=== PATIENT | female | born 1995 | race Caucasian/White ===

== ENCOUNTER 2018-07-26 10:08 | Outpatient (CLI) | payer BC, SELFPAY ==
[2018-07-26 10:26] LABS: HCT 40.1 % (36.0-46.0); HGB 13.4 g/dL (12.0-15.5); Mean Corp. HGB Concentration 33.4 g/dL (32.0-36.0); Mean Corpuscular Volume 89.7 fL (80-95); Mean Platelet Volume 10.4 fL (8.0-11.0); Platelet Count 214 x1000/uL (130-400); RBC 4.47 m/cumm (4.00-5.20); RBC Distribution Width 12.8 % (11.7-14.6); White Blood Cell Count 7.58 k/cumm (4.4-10.8)
[2018-07-26 11:21] LABS: HCG Quant, Pregnancy 784 mIU/mL (1-3)
== END 2018-07-26 10:28 ==
PROVIDERS: Visit Provider Advanced Practice Midwife
DX: O20.0 Threatened abortion (principal)
CPT/HCPCS: 36415; 85027; 84702

== ENCOUNTER 2018-07-29 10:12 | Outpatient (CLI) | payer BC, SELFPAY ==
[2018-07-29 11:57] LABS: HCG Quant, Pregnancy 585 mIU/mL (1-3)
== END 2018-07-29 10:32 ==
PROVIDERS: Visit Provider Advanced Practice Midwife
DX: O20.0 Threatened abortion (principal)
CPT/HCPCS: 36415; 84702

== ENCOUNTER 2018-08-05 10:55 | Outpatient (CLI) | payer BC, SELFPAY ==
[2018-08-05 12:31] LABS: HCG Quant, Pregnancy 12 mIU/mL (1-3)
== END 2018-08-05 11:15 ==
PROVIDERS: Visit Provider Advanced Practice Midwife
DX: O02.1 Missed abortion (principal)
CPT/HCPCS: 36415; 84702

== ENCOUNTER 2018-11-28 19:03 | Outpatient (REF) | payer BC, MEDICAID, SELFPAY ==
[2018-11-28 20:36] LABS: *AMPHETAMINES SCREEN URINE Negative (Negative); *BARBITURATES SCREEN URINE Negative (Negative); *BENZODIAZEPINES SCREEN URINE Negative (Negative); Cannabinoids THC Negative (Negative); Cocaine Screen,Urine Negative (Negative); METHADONE URINE SCREEN Negative (Negative); OPIATES URINE SCREEN Negative (Negative)
[2018-11-28 20:40] LABS: Tricyclic Antidepressants Negative (Negative)
[2018-11-30 14:06] LABS: Chlamydia Result Negative; GC Result Negative; Specimen Description CERVIX
[2018-12-06 11:35] LABS: Buprenorphine Negative; Norbuprenorphine Negative
== END 2018-11-28 19:23 ==
LOC: LBN 19:03
PROVIDERS: Visit Provider Advanced Practice Midwife
DX: Z34.91 Encounter for supervision of normal pregnancy, unspecified, first trimester (principal); Z11.3 Encounter for screening for infections with a predominantly sexual mode of transmission
CPT/HCPCS: 80307; 87491; 87591; 87086

== ENCOUNTER 2018-12-02 07:53 | Outpatient (CLI) | payer BC, MEDICAID, SELFPAY ==
[2018-12-02 10:32] LABS: Abs Immature Grans 0.01 k/cumm (0.0-0.09); Absolute Basophil Count 0.01 k/cumm (0.0-0.2); Absolute Eosinophil Count 0.07 k/cumm (0.0-0.7); Absolute Monocyte Count 0.63 k/cumm (0.11-0.7); Absolute Neutrophil Count 6.57 k/cumm (1.2-6.7); Basophils % 0.1; Eosinophils % 0.8; HCT 37.1 % (36.0-46.0); HGB 12.7 g/dL (12.0-15.5); Immature Grans % 0.1; Lymphocytes % 19.8; Mean Corp. HGB Concentration 34.2 g/dL (32.0-36.0); Mean Corpuscular Hemoglobin 29.8 pg (27.0-33.0); Mean Corpuscular Volume 87.1 fL (80-95); Mean Platelet Volume 10.3 fL (8.0-11.0); Monocytes % 6.9; Neutrophils % 72.3; Platelet Count 225 x1000/uL (130-400); RBC 4.26 m/cumm (4.00-5.20); RBC Distribution Width 12.4 % (11.7-14.6); White Blood Cell Count 9.09 k/cumm (4.4-10.8)
[2018-12-02 10:48] LABS: Glucose,1 Hr (Glucola) 80 mg/dL (80-140)
[2018-12-02 11:47] LABS: TSH (W/Ref FT4) 1.76 uIU/mL (0.358-3.74)
[2018-12-05 11:18] LABS: Hepatitis C Ab w Rflx HCV PCR Negative (NEGAT)
[2018-12-05 11:22] LABS: HIV-1/2 Ag & Ab Screen Negative (NEGAT)
[2018-12-05 11:44] LABS: Hepatitis B Surface Ag Negative (NEGAT)
[2018-12-05 12:19] LABS: Rubella IgG Ab (UVM) Positive; Syphilis Serology (RPR) Negative (Negative); Varicella IgG Antibody Positive
== END 2018-12-02 08:13 ==
PROVIDERS: Advanced Practice Midwife; Visit Provider Advanced Practice Midwife
DX: Z34.91 Encounter for supervision of normal pregnancy, unspecified, first trimester (principal); Z01.84 Encounter for antibody response examination; Z11.59 Encounter for screening for other viral diseases; Z11.4 Encounter for screening for human immunodeficiency virus [HIV]
CPT/HCPCS: 36415; 80055; 82950; 86787; 86803; 86850; 86900; 86901; 87340; 87389; 84443; 84702; 86592; 86762

== ENCOUNTER 2019-01-24 00:27 | Outpatient (CLI) | payer MEDICAID, SELFPAY ==
--- NOTE | 2019-01-24 11:58 | DI.US_ITS ---
SYMPTOM/DIAGNOSIS: ROUTINE CARE, Z34.90 OB ULTRASOUND: Many abnormalities cannot be diagnosed. A normal exam does not exclude a congenital anomaly. Radiology No. [id number] LMP: Exam Date: 01/24/19 [facility] wks days on EDC ([facility]) 06/16/19 Confirmed: HISTORY: SURVEY PREDICTED GESTATIONAL AGE NUMBER 19 +4 weeks with a range of 18 +4 week to 20 +4 weeks. 1 Determined by___1STUS___LMP__XX_HISTORY Info. pertaining to fetus # PLACENTA PRESENTATION Grade 0 - I Cephalic___ Anterior_XX__Posterior___ Breech____ Right Left Transverse(head right___ Fundal___Low-lying___Previa___ Transverse(head left___ Varying__XX____ BIOMETRY AMNIOTIC FLUID BPD: 47 mm 20 weeks Normal HC: 175 mm 20 weeks AC: 147 mm 20 weeks FL: 32 mm 19 +6 weeks AMNIOTIC FLUID INDEX >26 WK CRL: mm weeks Cisterna Magna: 4.1 mm CI: 78.2 RUQ: LUQ Cerebellum: 1.92 cm EFW: 323 grams 68% Percentile RLQ: LLQ Total: cms Composite AGE= 20 wks EDC by US__06/13/19 BIOPHYSICAL PROFILE ANATOMY IDENTIFIED SCORE 0/2 Heart: 4-Chamber_X__Rate:BPM__150___ LVOT:___X RVOT:___X Amniotic Fluid(>2cms)____ Stomach:___X____ Kidneys:___X____ Respirations (>30 secs) Bladder:___X Post. Fossa:___X Body Flex/Extension 3 vessel cord:__X Ventricles:__X cord insertion:__X___ Lips:__X__ Extremity Flex/Extension spinal morphology:__XX Nose:X Total Score= Palate:_X NS=not seen
== END 2019-01-24 00:47 ==
PROVIDERS: PCP Nurse Practitioner Family; Visit Provider Advanced Practice Midwife
DX: Z34.92 Encounter for supervision of normal pregnancy, unspecified, second trimester (principal)
CPT/HCPCS: 76805

== ENCOUNTER 2019-03-17 10:03 | Outpatient (CLI) | payer MEDICAID, SELFPAY ==
[2019-03-17 10:16] LABS: HCT 34.1 % (36.0-46.0); HGB 11.3 g/dL (12.0-15.5); Mean Corp. HGB Concentration 33.1 g/dL (32.0-36.0); Mean Corpuscular Hemoglobin 29.7 pg (27.0-33.0); Mean Corpuscular Volume 89.7 fL (80-95); Mean Platelet Volume 10.3 fL (8.0-11.0); Platelet Count 185 x1000/uL (130-400); RBC Distribution Width 14.7 % (11.7-14.6); White Blood Cell Count 8.16 k/cumm (4.4-10.8)
[2019-03-17 10:26] LABS: Glucose,1 Hr (Glucola) 101 mg/dL (80-140)
== END 2019-03-17 10:23 ==
PROVIDERS: Visit Provider Advanced Practice Midwife
DX: Z34.90 Encounter for supervision of normal pregnancy, unspecified, unspecified trimester (principal)
CPT/HCPCS: 36415; 82950; 85027

== ENCOUNTER 2019-05-19 12:07 | Outpatient (REF) | payer MEDICAID, SELFPAY ==
[2019-05-19 14:41] LABS: *AMPHETAMINES SCREEN URINE Negative (Negative); *BARBITURATES SCREEN URINE Negative (Negative); *BENZODIAZEPINES SCREEN URINE Negative (Negative); Cannabinoids THC Negative (Negative); Cocaine Screen,Urine Negative (Negative); METHADONE URINE SCREEN Negative (Negative); OPIATES URINE SCREEN Negative (Negative)
[2019-05-19 14:42] LABS: Tricyclic Antidepressants Negative (Negative)
[2019-05-23 15:40] LABS: Buprenorphine Negative; Norbuprenorphine Negative
== END 2019-05-19 12:27 ==
LOC: LBN 12:07
PROVIDERS: Visit Provider Advanced Practice Midwife
DX: Z34.93 Encounter for supervision of normal pregnancy, unspecified, third trimester (principal); Z36.85 Encounter for antenatal screening for Streptococcus B
CPT/HCPCS: 80307; 87081

== ENCOUNTER 2019-06-09 11:08 | Outpatient (CLI) | payer MEDICAID, SELFPAY | END 2019-06-09 11:28 | PROVIDERS: Visit Provider Advanced Practice Midwife | DX: O48.0 Post-term pregnancy (principal); Z3A.40 40 weeks gestation of pregnancy | CPT/HCPCS: 59025 ==

== ENCOUNTER 2019-06-09 16:00 | Inpatient (IN) | payer MEDICAID, SELFPAY ==
[2019-06-09 17:21] LABS: HCT 34.7 % (36.0-46.0); HGB 11.5 g/dL (12.0-15.5); Mean Corp. HGB Concentration 33.1 g/dL (32.0-36.0); Mean Corpuscular Hemoglobin 28.1 pg (27.0-33.0); Mean Corpuscular Volume 84.8 fL (80-95); Platelet Count 260 x1000/uL (130-400); RBC 4.09 m/cumm (4.00-5.20); White Blood Cell Count 11.51 k/cumm (4.4-10.8)
[2019-06-09] MEDS: Oxytocin 10 UNITS/ML VIAL IM (19:00)
[2019-06-09] MEDS: Acetaminophen 325 MG TAB 650 MG PO (22:05)
[2019-06-10] MEDS: Ibuprofen 600 MG TAB PO ×2 (01:50→20:00)
[2019-06-10] MEDS: Docusate Sodium 100 MG CAP PO ×3 (01:50→16:48)
[2019-06-10] MEDS: Acetaminophen 325 MG TAB 650 MG PO ×2 (06:55→16:48)
[2019-06-11] MEDS: Acetaminophen 325 MG TAB 650 MG PO (06:31)
[2019-06-11] MEDS: Docusate Sodium 100 MG CAP PO (07:58)
== END 2019-06-11 10:55 | disposition home or self-care (01) | DRG 807 ==
PROVIDERS: Admitting Provider Advanced Practice Midwife; PCP Specialist/Technologist Athletic Trainer; Visit Provider Advanced Practice Midwife
DX: O42.02 Full-term premature rupture of membranes, onset of labor within 24 hours of rupture (principal); Z37.0 Single live birth; Z3A.39 39 weeks gestation of pregnancy; O69.81X0 Labor and delivery complicated by cord around neck, without compression, not applicable or unspecified; Z67.40 Type O blood, Rh positive
CPT/HCPCS: 36415; 85027; 86850; 86900; 86901; G0378; J2590

== ENCOUNTER 2021-05-29 13:27 | Outpatient (REF) | payer MEDICAID, SELFPAY ==
--- NOTE | 2021-05-29 11:00 | PAPFT_PTH ---
PATIENT: Erin Storm LOC: [facility] U#:[id number] AGE/SX: 26/F ROOM: RE05/29/[address]: Ada Valle CNM : 1995 BED: DIS: 05/29/2021 SPEC #: [id number] RECD: 05/29/21 17:49 STATUS: REX RESam #: [id number] MAYRA: 05/29/21 11:[address]: Ada Valle DEPT: FORMERLY [facility], 1928–1983 Cytology RECD BY: Simi Jaquez ENTERED: 05/29/21 17:49 SP TYPE: PAPFT OTHR DR: Jeremie Adams Tissues: 1 - CX/ENDOCX FOR PAP SMEARS Procedures: PAP THIN PREP/UVM Screening Comments: [id number] (CHLAMYDIA/GC)
[2021-05-29 17:10] LABS: *AMPHETAMINES SCREEN URINE Negative (Negative); *BARBITURATES SCREEN URINE Negative (Negative); *BENZODIAZEPINES SCREEN URINE Negative (Negative); Cannabinoids THC Negative (Negative); Cocaine Screen,Urine Negative (Negative); METHADONE URINE SCREEN Negative (Negative); OPIATES URINE SCREEN Negative (Negative); Tricyclic Antidepressants Negative (Negative)
[2021-05-30 15:20] LABS: Chlamydia Result Negative (Negative); GC Result Negative (Negative)
[2021-06-07 10:38] LABS: Buprenorphine Negative ng/mL (Cutoff: 5.0)
== END 2021-05-29 13:28 | disposition home or self-care (01) ==
LOC: LBN 13:27
PROVIDERS: PCP Specialist/Technologist Athletic Trainer; Visit Provider Advanced Practice Midwife
DX: Z34.91 Encounter for supervision of normal pregnancy, unspecified, first trimester (principal); Z11.3 Encounter for screening for infections with a predominantly sexual mode of transmission; Z12.4 Encounter for screening for malignant neoplasm of cervix; Z3A.12 12 weeks gestation of pregnancy
CPT/HCPCS: 80307; 87491; 87591; 88142; 87086

== ENCOUNTER 2021-05-29 15:48 | Outpatient (CLI) | payer MEDICAID, SELFPAY ==
--- NOTE | 2021-05-29 11:15 | DI.US_ITS ---
Exam(s) US OB 1ST TRIMESTER EXAM: US OB 1ST TRIMESTER CLINICAL HISTORY: dating, positive preg test, Z32.01, wet reading. TECHNIQUE: First trimester obstetrical ultrasound was performed. COMPARISON: US US OB 2-3 trimester from 01/24/2019 FINDINGS: There is an intrauterine gestational sac which contains a yolk sac and viable pole which exhibi ts heart rate of 150 bpm. movement was observed. There is normal amount of amniotic flu id. There is no evidence of subchorionic hemorrhage. Dating parameters places at approximately 13 weeks gestational age. BPD measures 13 weeks. Head circumference measures 13 weeks and 3 days Abdominal circumference measures 13 weeks Femur length measures 12 weeks and 4 days Maternal ovaries: There are no images of the maternal ovaries on this study. IMPRESSION:: Single viable intrauterine gestation which is approximately 13 weeks gestational age by ultrasound dating, this implying ISAAC of December 04 2021 DATA REPOSITORY: There are no images of the maternal ovaries on this study.
== END 2021-05-29 16:08 ==
PROVIDERS: PCP Specialist/Technologist Athletic Trainer; Visit Provider Advanced Practice Midwife
DX: Z32.01 Encounter for pregnancy test, result positive (principal); Z3A.13 13 weeks gestation of pregnancy
CPT/HCPCS: 76801

== ENCOUNTER 2021-06-02 03:09 | Outpatient (CLI) | payer MEDICAID, SELFPAY ==
[2021-06-02 12:49] LABS: Abs Immature Grans 0.02 10^3/uL (0.0-0.06); Absolute Basophil Count 0.02 10^3/uL (0.0-0.2); Absolute Eosinophil Count 0.05 10^3/uL (0.0-0.7); Absolute Lymphocyte Count 1.93 10^3/uL (1.2-3.4); Absolute Monocyte Count 0.31 10^3/uL (0.1-0.8); Absolute Neutrophil Count 5.22 10^3/uL (1.2-6.7); Basophils % 0.3; Eosinophils % 0.7; Glucose,1 Hr (Glucola) 112 mg/dL (80-140); HCT 36.3 % (36.0-46.0); Immature Grans % 0.3; Lymphocytes % 25.6; MCH 28.8 pg (27.0-33.0); MCHC 33.1 % (32.0-36.0); MCV 87.1 fL (80-95); MPV 10.9 fL (8.0-11.0); Monocytes % 4.1; Nucleated RBC 0 %; Platelet Count 198 10^3/uL (130-400); RBC 4.17 10^6/uL (3.93-5.22); RDW 11.9 % (11.7-14.6); RDW-SD 38.2 fL; WBC 7.55 10^3/uL (4.4-10.8)
[2021-06-02 14:05] LABS: TSH (W/Ref FT4) 1.91 uIU/mL (0.36-3.74)
[2021-06-03 09:06] LABS: Hepatitis C Ab w Rflx HCV PCR Negative (Negative)
[2021-06-03 11:20] LABS: Rubella IgG Ab (UVM) Positive (See Note); Varicella IgG Antibody Positive (See Note)
[2021-06-03 12:02] LABS: Hepatitis B Surface Ag Negative (Negative)
[2021-06-03 12:46] LABS: HIV-1/2 Ag & Ab Screen Negative (Negative)
[2021-06-04 13:41] LABS: Syphilis Total Ab w/Reflex Nonreactive (Nonreactive)
== END 2021-06-02 03:10 | disposition home or self-care (01) ==
LOC: LBO 03:09
PROVIDERS: PCP Specialist/Technologist Athletic Trainer; Visit Provider Advanced Practice Midwife
DX: Z34.91 Encounter for supervision of normal pregnancy, unspecified, first trimester (principal); Z11.4 Encounter for screening for human immunodeficiency virus [HIV]; Z11.59 Encounter for screening for other viral diseases; Z01.84 Encounter for antibody response examination; Z3A.13 13 weeks gestation of pregnancy; Z68.34 Body mass index [BMI] 34.0-34.9, adult
CPT/HCPCS: 36415; 82950; 86787; 86803; 86850; 86900; 86901; 87340; 87389; 84443; 85025; 86762; 86780

== ENCOUNTER 2021-07-18 03:43 | Outpatient (CLI) | payer MEDICAID, SELFPAY ==
--- NOTE | 2021-07-18 06:45 | DI.US_ITS ---
Exam(s) US OB 2-3 TRIMESTER EXAM: US OB 2-3 TRIMESTER CLINICAL HISTORY: ,z34.90 TECHNIQUE: Ultrasound performed using standard protocol. COMPARISON: US US OB 1ST TRIMESTER from 05/29/2021 FINDINGS: Ob ultrasound was performed utilizing 2nd trimester protocol. biometry is consistent with gest ational age of 19 weeks 6 days and EDC of December 06, 2021. Placenta is posterior with no placenta previa. There is a normal quantity of amniotic fluid. anomaly screen is within normal limits as per the attached checklist. heart rate was not ed at 150 BPM. IMPRESSION: DATA REPOSITORY:
== END 2021-07-18 04:03 ==
PROVIDERS: PCP Nurse Practitioner Family; Visit Provider Advanced Practice Midwife
DX: Z34.92 Encounter for supervision of normal pregnancy, unspecified, second trimester (principal)
CPT/HCPCS: 76805

== ENCOUNTER 2021-09-22 04:02 | Outpatient (CLI) | payer MEDICAID, SELFPAY ==
[2021-09-22 14:17] LABS: HCT 35.6 % (36.0-46.0); HGB 11.7 g/dL (11.2-15.7); MCH 29.1 pg (27.0-33.0); MCHC 32.9 % (32.0-36.0); MCV 88.6 fL (80-95); MPV 11.5 fL (8.0-11.0); Platelet Count 127 10^3/uL (130-400); RBC 4.02 10^6/uL (3.93-5.22); RDW 13.1 % (11.7-14.6); RDW-SD 42.5 fL; WBC 9.61 10^3/uL (4.4-10.8)
[2021-09-22 14:24] LABS: Glucose,1 Hr (Glucola) 104 mg/dL (80-140)
== END 2021-09-22 04:03 | disposition home or self-care (01) ==
LOC: LBO 04:02
PROVIDERS: PCP Nurse Practitioner Family; Visit Provider Advanced Practice Midwife
DX: O99.113 Other diseases of the blood and blood-forming organs and certain disorders involving the immune mechanism complicating pregnancy, third trimester (principal); Z3A.29 29 weeks gestation of pregnancy
CPT/HCPCS: 36415; 82950; 85027

== ENCOUNTER 2021-11-14 01:44 | Outpatient (CLI) | payer MEDICAID, SELFPAY ==
[2021-11-14 12:42] LABS: HGB 12.5 g/dL (11.2-15.7); MCH 28.6 pg (27.0-33.0); MCHC 32.1 % (32.0-36.0); MCV 89.2 fL (80-95); MPV 11.1 fL (8.0-11.0); Platelet Count 158 10^3/uL (130-400); RBC 4.37 10^6/uL (3.93-5.22); RDW 13.6 % (11.7-14.6); RDW-SD 44.5 fL; WBC 7.55 10^3/uL (4.4-10.8)
== END 2021-11-14 01:45 | disposition home or self-care (01) ==
LOC: LBO 01:44
PROVIDERS: PCP Nurse Practitioner Family; Visit Provider Advanced Practice Midwife
DX: D69.6 Thrombocytopenia, unspecified (principal); O99.113 Other diseases of the blood and blood-forming organs and certain disorders involving the immune mechanism complicating pregnancy, third trimester
CPT/HCPCS: 36415; 85027

== ENCOUNTER 2021-11-14 15:05 | Outpatient (REF) | payer MEDICAID, SELFPAY ==
[2021-11-14 16:17] LABS: *AMPHETAMINES SCREEN URINE Negative (Negative); *BARBITURATES SCREEN URINE Negative (Negative); *BENZODIAZEPINES SCREEN URINE Negative (Negative); Cannabinoids THC Negative (Negative); Cocaine Screen,Urine Negative (Negative); METHADONE URINE SCREEN Negative (Negative); OPIATES URINE SCREEN Negative (Negative)
[2021-11-14 16:19] LABS: Tricyclic Antidepressants Negative (Negative)
[2021-11-20 19:06] LABS: Buprenorphine Negative ng/mL (Cutoff: 5.0); Norbuprenorphine Negative ng/mL (Cutoff: 2.5)
== END 2021-11-14 15:06 | disposition home or self-care (01) ==
LOC: LBN 15:05
PROVIDERS: PCP Nurse Practitioner Family; Visit Provider Advanced Practice Midwife
DX: Z34.93 Encounter for supervision of normal pregnancy, unspecified, third trimester (principal)
CPT/HCPCS: 80307; 87081

== ENCOUNTER 2021-11-20 00:32 | Outpatient (CLI) | payer MEDICAID, SELFPAY ==
[2021-11-20 00:35] VITALS: BP 122/75; PULSE 90; TEMP 36.7
[2021-11-20 00:41] VITALS: BP 122/75; PULSE 90
--- NOTE | 2021-11-20 07:44 | W.OBNST ---
Date of service: 11/20/21 Time of Service: 02:00 NST Evaluation Reason for NST Reasons for Nonstress Test: OTHER, SEE COMMENT Reason for NST Other: Rule Out Labor Gestational Age Gestational Age in Weeks and Days: 38 Weeks and 0Days Test and Monitor Explained Test/Monitor Explained: Test Explained, Monitor Explained and Patient Verbalized Understanding Vital Signs Blood Pressure: 122/75 Pulse: 90 Temperature: 98.1 F Urine Results Urine Protein: Negative Urine Ketones: Negative Urine Glucose: Negative Urine Blood: Negative NST Information Date on Monitor: 11/20/21 Time on Monitor: 00:34 Date off Monitor: 11/20/21 Time off Monitor: 01:41 Total Time on Monitor: 67 NST Interventions: PO Hydration NST Evaluation Patient States Movement: Present FHR Baseline: 145 Variability: Moderate 6-25 bpm Accelerations: 15x15 and Prolonged Decelerations: None NST Results: Reactive Note NST Note Note: Rare contraction, pt comfortable, states pains stopped when she got in the car to come in, episode of nausea has resolved. Baby very active, prolonged accels noted, Cvx 2/thick, posterior, intact membranes, vtx -4 No labor, NST reactive, discharged to home, f/up as scheduled. NST Reviewed and Verified by: Ada Valle
[2021-11-20 07:47] VITALS: BP 122/75; PULSE 90; TEMP 36.7
== END 2021-11-20 01:51 | disposition home or self-care (01) ==
LOC: OBS 00:34 → BCD 12:27
PROVIDERS: PCP Nurse Practitioner Family; Visit Provider Advanced Practice Midwife
DX: O47.1 False labor at or after 37 completed weeks of gestation (principal); Z3A.38 38 weeks gestation of pregnancy
CPT/HCPCS: 59025

== ENCOUNTER 2021-12-08 01:24 | Inpatient (IN) | payer MEDICAID, SELFPAY ==
[2021-12-08] VITALS (17 sets, daily range): BP systolic 100–124; BP diastolic 57–76; PULSE 83–104; RESP 18–20; TEMP 36.4–36.8
--- NOTE | 2021-12-08 01:57 | W.PM.OBHPL1 ---
Date of service: 12/08/21 Time of Service: 01:57 Assessment and Plan Assessment and plan (1) Active labor at term: Status: Acute Assessment and plan: 1. Admit to BC 2. COVID swab obtained, CBC and Type and screen obtained 3. Support normal labor, expect NVD. OB-HPI Labor/Delivery History of Present Illness Reason for Visit: Regular Contractions at Term Chief Complaint: Uterine Contractions. ISAAC Calculator Estimated Delivery Date Method Current WG Current Estimate 12/04/21 Ultrasound #1 40w 4d Other Estimates 12/12/21 LMP (Certain) 39w 3d Comments: Erin has had contractions throughout the day on 12/07 but increased in intensity and frequency after midnight on 12/08/21. Denies ROM but has had some pink discharge. Baby has been active. History of Present Expected Delivery Route/Plan - CNM FOB/ - Vinny Storm Prefers not to know gender, will circ if male Interested in trying the tub this time - has never used it. GBS negative Specific Issues/Plan 1. Declines genetic screening tests 2. Is not COVID vaccinated, will discuss w/ 2a. Ren will not be receiving covid vaccine 3. Pt is one of 11 children, FOB is one of 8 children 4. Pt is a twin, her father is a twin, her aunts are twins, her sister just had twins 5. BMI 34, early glucola- 112, 28 weeks GTT 104 6. PCN allergy: low risk after screening, interested in [facility] allergy testing - refer 7. Mild thrombocytopenia 127 at 29 weeks, repeat at 36 weeks - 158 Assessment: History Reviewed & Current Informed Consent Informed Consent: Other (normal labor and pain management options. ) Review of Systems All systems reviewed & are unremarkable except as noted in HPI and below PFSH All Active Problems (Updated 12/08/21 @ 02:07 by Astrid Jeffery CNM) Active labor at term (Acute) (Acute) BMI 31.0-31.9,adult (Chronic) Penicillin allergy (Acute 12/10/16) 05/29/21: low risk for actual PCN allergy, will offer allergy testing at [facility] Medical History History of lower leg fracture Thrombocytopenia affecting resolved 2/4/22 on f/up plt count Surgical History [place] teeth extracted Family History Mother Asthma Social History Smoking/Tobacco Use Status: Never Smoking risk assessment performed?: Yes Alcohol Intake: former Substance use type: does not use Seatbelt use: always Female Reproductive History Menstrual Age of Menarche: 11 Duration of menses: 6-7 days control method: none History History 3 Para 2 Hx # Term Pregnancies 2 Multiple births 0 Hx # Pregnancies 0 Ectopic pregnancies 0 AB induced 0 Hx Number of Living Children 2 AB spontaneous 1 Past Pregnancies Del. Date GA/Weeks # Outcome Route Wgt Sex Labor Lgth Anesthesia Location Prov Complic 12/31/16 40 No Successful vaginal 7 lb 0.8 oz Male 7 hrs local kev rodriguez cnm 06/09/19 39 No Successful vaginal 6 lb 13 oz Female 6 hours local Dariana Valle CNM Delivery Date: 12/31/16 Last Updated by: Astrid Fracnisco CNM pt thinks she had 2nd degree lac. Group B strep Delivery Date: 06/09/19 Last Updated by: Nelida Shaikh LPN exact weight unknown, baby weighed 6lbs 13 oz on day after delivery per paperwork. Meds Allergies and Home Medications Allergies Allergy/AdvReac Type Severity Reaction Status Date / Time amoxicillin AdvReac Unknown DIARRHEA Verified 12/08/21 02:03 Home Medications Medication Instructions Recorded Confirmed Type vit no.95-ferrous 1 tab PO DAILY #90 MDD 1 09/21/16 12/08/21 History fumarate 28 mg-folic acid 800 mcg tablet () Exam Physical Exam Vital Signs Reviewed: Yes Constitutional Constitutional: no acute distress, average body habitus and cooperative Detailed Labor and Delivery Exam Dilation: 5 Effacement (%): 90 station: -1 Position: BULL Cervix position: mid Consistency: soft Bansal Score: Cervical Points Exam 0 1 2 3 Dilation Closed 1-2cm 3-4 cm 5-6cm Effacement 0-30% 40-50% 60-70% 80% Consistency Firm Medium Soft Station -3 -2 -1,0 +1,+2 Position Posterior Mid Anterior BANSAL Score(Cervical Ripeness Score): 11 Amniotic Membrane Status: Intact Fetus A Heart Rate Baseline: 148 Monitor Accelerations: 15 X 15 Monitor Decelerations: None Variability: Moderate (6-25 BPM) Categories: Category I Est. Weight: 7 lb 8 oz HEENT Exam HEENT Exam: Normal Neck Exam Neck Exam: Not Done Chest/Brest/Axilla Exam Chest Exam: Not Done Breast Exam Breast Exam: Not Done Respiratory Exam Respiratory Exam: Normal Cardiovascular Exam Cardiovascular Exam: Normal Abdominal Exam Abdominal Exam: Normal Rectal Exam Rectal Exam: Not Done Exam Exam: Normal Extremities Exam Extremities Exam: Normal Back/Spine/Pelvis Exam Pelvis Adequate: Yes (proven to 7lb 8oz) Skin Exam Skin Exam: Normal Neurological Exam Neurological Exam: Normal Psychiatric Exam Psychiatric Exam: Normal Results Results Group Beta Strep: Negative Blood Type: O+ Rubella Status: Immune Varicella Immunity: Immune Risk Assessment Risk for Shoulder Dystocia Historical/Initial OB: POSITIVE FOR: Pre- BMI>30; NEGATIVE FOR: Pelvic Abnormality, Previous Shoulder Dystocia or Previous Macrosomia 40 Weeks: NEGATIVE FOR: EFW> 4500 gms, Maternal Weight Gain >40lb or Post Dates Delivery Plan @ 40 wks: NVD expected. ZAC Risk for Pre-Eclampsia Date Initiated/Initials: not indicated. JK Yes, if one or more: NEGATIVE FOR: Hx Pre-E/Gest HTN, Chronic HTN, Multiple Gestation, Pre-gestational DM, Renal Disease, Systemic Lupus or APA Syndrome Yes, if 2 or more: POSITIVE FOR: BMI>30; NEGATIVE FOR: Nulliparity, Age>= 35 yrs, >10yr btwn pregnancies, ethinicty, Mother/Sister w/ Pre-E or Previous IUGR Risk for Post- Hemorrhage Initial: NEGATIVE FOR: Multiple Gestation, Previous PPH, Known Clotting Deficiency, Grand Multiparity or Anticoagulation Counseled re: Active Management: Yes Date/Initials: 12/08/21 [facility] Risks Reviewed Risks Reviewed Upon Admission: Yes
[2021-12-08 02:25] LABS: HGB 12.3 g/dL (11.2-15.7); MCH 28.7 pg (27.0-33.0); MCHC 33.2 % (32.0-36.0); MCV 86.2 fL (80-95); Platelet Count 176 10^3/uL (130-400); RBC 4.29 10^6/uL (3.93-5.22); RDW 13.3 % (11.7-14.6); RDW-SD 41.5 fL; WBC 8.81 10^3/uL (4.4-10.8)
[2021-12-08 02:28] LABS: Source Nasal/Nares
[2021-12-08 03:06] LABS: COVID-19 PCR Negative (Negative)
--- NOTE | 2021-12-08 05:11 | W.PM.OBNL1 ---
Date of service: 12/08/21 Time of Service: 05:11 Informed Consent Informed Consent: Other (normal labor and pain management options. ) Assessment and Plan Assessment and plan (1) Irregular uterine contractions: Status: Acute Assessment and plan: 1. contractions have become irregular and less intense and patient prefers to nap at this time. Will leave undisturbed and reassess in 2 hours or prn. Objective Temp Pulse Resp BP 97.5 F L 100 H 18 124/76 12/08/21 02:11 12/08/21 02:11 12/08/21 02:11 12/08/21 02:11 Laboratory Results WBC 8.81 10^3/uL (4.4-10.8) 12/08/21 02:20 RBC 4.29 10^6/uL (3.93-5.22) 12/08/21 02:20 Hgb 12.3 g/dL (11.2-15.7) 12/08/21 02:20 Hct 37.0 % (36.0-46.0) 12/08/21 02:20 MCV 86.2 fL (80-95) 12/08/21 02:20 MCH 28.7 pg (27.0-33.0) 12/08/21 02:20 MCHC 33.2 % (32.0-36.0) 12/08/21 02:20 RDW 13.3 % (11.7-14.6) 12/08/21 02:20 Plt Count 176 10^3/uL (130-400) 12/08/21 02:20 MPV 11.0 fL (8.0-11.0) 12/08/21 02:20 COVID-19 Source Nasal/Nares 12/08/21 02:15 SARS-CoV-2 (PCR) Negative (Negative) 12/08/21 02:15 Patient ABO/Rh O Positive 12/08/21 02:20 Antibody Screen NEGATIVE 12/08/21 02:20 Subjective Interval history since last seen: Patient has fallen to sleep and is currently being left undisturbed. Results Hemoglobin/Hematocrit: Hgb 12.3 g/dL (11.2-15.7) 12/08/21 02:20 Hct 37.0 % (36.0-46.0) 12/08/21 02:20
--- NOTE | 2021-12-08 07:51 | W.OBDELIVERY ---
Date of service: 12/08/21 Time of Service: 07:51 OB Labor/ Delivery Information Baby A Delivery Delivery Method: Spontaneaous Presentation: Cephalic Cephalic Position: Vertex Vertex Position: Left Occipital Anterior Cord Description-Baby A: 3 Vessels Cord Description Comment: normal cord Amniotic Fluid: Clear Estimated Blood Loss: 250 Delivery Outcome: Liveborn Complications: none Transferred: Remains with Mother Note: Erni had regular contractions that spaced out over night and she napped for several hours. She awoke with very active labor at approximately 0600. Shortly after 7am Erin had involuntary pushing effort approximately 8-10 minutes before . Second stage huddle done with RN in room. FHR CAT I. Live female delivers BULL over intact perineum at 0737. Baby is placed on Mother's lower abdomen due to length of cord and when pulsations ceased, cord was double clamped and cut. 3 vessel cord noted. Baby was brought to Mothers chest skin to skin. positive family bonding noted. scores 9/9. There was a gush of blood and patient was repositioned to allow placenta to deliver at 0742, intact. Fundus firms to U with massage, no free bleeding. EBL 250cc. Pitocin 10 units IM was given shortly after baby delivered. Perineum inspected and found to be intact. sponge, needle and instrument count are correct and Mother and baby are in satisfactory condition. Expect normal PP couse. Baby girl does not have a name yet. Ren plan NFP for contraception. See completed delivery record for weight. [facility] Labor/Delivery Information Group Beta Strep: Negative Rubella Status: Immune Blood Type: O+ Varicella Immunity: Immune Stages of Labor Onset of Labor Date: 12/07/21 Onset of Labor Time: 15:30
[2021-12-08] MEDS: Ibuprofen 600 MG TAB PO (16:23)
[2021-12-08] MEDS: Docusate Sodium 100 MG CAP PO (16:23)
[2021-12-08] MEDS: Acetaminophen 325 MG TAB 650 MG PO (23:44)
[2021-12-09] MEDS: Ibuprofen 600 MG TAB PO (06:37)
[2021-12-09] MEDS: Docusate Sodium 100 MG CAP PO (06:37)
[2021-12-09 08:23] VITALS: BP 115/68; PULSE 87; RESP 17; TEMP 36.8
--- NOTE | 2021-12-09 10:51 | W.PM.OBDISCH ---
Date of service: 12/09/21 Time of Service: 13:07 DS: Diagnosis Discharge Diagnosis (1) Vaginal delivery: Status: Acute Asessment and Plan: Caring for baby independently. Pain is managed well with oral analgesics. Voiding without difficulty. well. Requesting discharge on post day 1 A - stable mother and baby , Post day 1, P - Discharge to home today. Routine post instructions. [facility] Discharge Plan Discharge Details Reason For Visit: Regular Contractions at Term Admit Date/Time: 12/08/21 01:24 Admit Provider: Astrid Jeffery Attending Provider: Astrid Jeffery Primary Care Provider: Elvia Caicedo Home Meds and New Rx's Prescriptions: No Action PNV cmb#95-ferrous fumarate-FA [] 1 EACH tablet 1 tab PO DAILY MDD 1 Qty: 90 0RF Discharge Instructions Stand Alone Forms: BC Instructions, BC Post Vaginal Deliver Activity:: Activity as Tolerated Activity:: Activity as Tolerated Equipment/Supplies:: No Equipment Needed Diet:: As Tolerated OB:DS Summary Summary Vaginal Delivery Method: Spontaneaous Episiotomy Description: None Laceration Description: Other Laceration Extension: N/A Contraception Discussed Contraception Discussed: Yes (NFP), [place] Gender-Baby A: Female Status at Discharge Functional status at discharge: independent ambulation Overall status at discharge: patient is back to baseline Mental Status: mental status grossly normal Speech and Movement: speech and movement normal Mood: congruent mood Affect: normal affect Exam Physical Exam Vital signs: Temp Pulse Resp BP 98.2 F 87 17 115/68 12/09/21 08:23 12/09/21 08:23 12/09/21 08:23 12/09/21 08:23 Detailed Respiratory Exam Respiratory: Present CTA bilaterally Cardiovascular Exam Cardiovascular Exam: Normal Fundal Exam Fundus: Below Umbilicus Exam Perineum: Intact External: Present normal urethra appearance Extremities Exam Extremity Exam: Normal Psychiatric Exam Psychiatric Exam: Normal PFSH All Active Problems (Updated 12/09/21 @ 10:52 by Astrid Francisco CNM) Vaginal delivery (Acute) BMI 31.0-31.9,adult (Chronic) Penicillin allergy (Acute 12/10/16) 05/29/21: low risk for actual PCN allergy, will offer allergy testing [place] [facility] Medical History (Updated 12/09/21 @ 10:52 by Astrid Francisco CNM) History of lower leg fracture Thrombocytopenia affecting resolved 11/14/21 on f/up plt count Surgical History [place] teeth extracted Family History Mother Asthma Social History Smoking/Tobacco Use Status: Never Smoking risk assessment performed?: Yes Alcohol Intake: former Drug use: Never Substance use type: does not use Seatbelt use: always Do you feel safe at home: Yes Do you feel safe in your relationship?: Yes Female Reproductive History Menstrual Age of Menarche: 11 Duration of menses: 6-7 days control method: none History History 3 Para 2 Hx # Term Pregnancies 2 Multiple births 0 Hx # Pregnancies 0 Ectopic pregnancies 0 AB induced 0 Hx Number of Living Children 2 AB spontaneous 1 Past Pregnancies Del. Date GA/Weeks # Outcome Route Wgt Sex Labor Lgth Anesthesia Location Prov Complic 12/31/16 40 No Successful vaginal 7 lb 0.8 oz Male 7 hrs local kev rodriguez cnm 06/09/19 39 No Successful vaginal 6 lb 13 oz Female 6 hours local Dariana Valle CNM Delivery Date: 12/31/16 Last Updated by: Astrid Francisco CNM pt thinks she had 2nd degree lac. Group B strep Delivery Date: 06/09/19 Last Updated by: Nelida Shaikh LPN exact weight unknown, baby weighed 6lbs 13 oz on day after delivery per paperwork. DS: Data Vitals/I&O Vitals and I&O: Vital Signs Temperature 98.2 F 12/09/21 08:23 Pulse 87 12/09/21 08:23 Pulse Rhythm Regular 12/09/21 08:24 Respiratory Rate 17 12/09/21 08:23 Respiratory Depth Normal 12/09/21 08:24 Blood Pressure 115/68 12/09/21 08:23 Blood Pressure Mean 83 12/09/21 08:23 Oxygen Delivery Method Room Air 12/08/21 02:11 Oxygen Flow Rate 0 12/08/21 02:11 Pain Level 1 12/09/21 08:23 Comment 12/08/21 10:34 Intake & Output 12/08/21 12/08/21 12/09/21 11:59 23:59 11:59 Intake Total 250 / 250 Output Total 1675 / 1675 Balance -1425 / -1425 Weight 214 lb Intake: Oral 250 / 250 Output: Urine 1425 / 1425 Blood 250 / 250 Other: Urine Color Yellow Bright Red Yellow Bright Red
== END 2021-12-09 14:00 | disposition home or self-care (01) | DRG 807 ==
PROVIDERS: Admitting Provider Advanced Practice Midwife; PCP Nurse Practitioner Family; Visit Provider Advanced Practice Midwife
DX: O80 Encounter for full-term uncomplicated delivery (principal); Z37.0 Single live birth; Z3A.40 40 weeks gestation of pregnancy
CPT/HCPCS: 36415; 85027; 86850; 86900; 86901; 87635

== ENCOUNTER 2022-09-09 03:25 | Outpatient (CLI) | payer MEDICAID, SELFPAY ==
[2022-09-09 12:14] LABS: Abs Immature Grans 0.01 10^3/uL (0.0-0.06); Absolute Basophil Count 0.02 10^3/uL (0.0-0.2); Absolute Eosinophil Count 0.04 10^3/uL (0.0-0.7); Absolute Lymphocyte Count 1.89 10^3/uL (1.2-3.4); Absolute Monocyte Count 0.35 10^3/uL (0.1-0.8); Absolute Neutrophil Count 4.92 10^3/uL (1.2-6.7); Basophils % 0.3; Eosinophils % 0.6; HCT 37.8 % (36.0-46.0); HGB 12.4 g/dL (11.2-15.7); Immature Grans % 0.1; Lymphocytes % 26.1; MCH 28.9 pg (27.0-33.0); MCHC 32.8 % (32.0-36.0); MCV 88 fL (80-95); MPV 10.8 fL (8.0-11.0); Monocytes % 4.8; Neutrophils % 68.1; Platelet Count 191 10^3/uL (130-400); RBC 4.29 10^6/uL (3.93-5.22); RDW 12.5 % (11.7-14.6); RDW-SD 40.6 fL; WBC 7.23 10^3/uL (4.4-10.8)
[2022-09-09 13:00] LABS: Glucose,1 Hr (Glucola) 114 mg/dL (80-140)
[2022-09-09 13:14] LABS: TSH (W/Ref FT4) 2.72 uIU/mL (0.36-3.74)
[2022-09-10 10:09] LABS: Varicella IgG Antibody Positive (See Note)
[2022-09-10 10:13] LABS: Rubella IgG Ab (UVM) Positive (See Note)
[2022-09-10 10:34] LABS: HIV-1/2 Ag & Ab Screen Negative (Negative)
[2022-09-10 15:39] LABS: Hepatitis B Surface Ag Negative (Negative)
[2022-09-10 16:20] LABS: Hepatitis C Ab w Rflx HCV PCR Negative (Negative)
[2022-09-11 16:59] LABS: Syphilis IgG w/Reflex Nonreactive (Nonreactive)
== END 2022-09-09 03:26 | disposition home or self-care (01) ==
LOC: LBO 03:25
PROVIDERS: Obstetrics & Gynecology Gynecology; PCP Nurse Practitioner Family; Visit Provider Advanced Practice Midwife
DX: O99.211 Obesity complicating pregnancy, first trimester (principal); Z3A.11 11 weeks gestation of pregnancy
CPT/HCPCS: 36415; 82950; 86787; 86803; 86850; 86900; 86901; 87340; 87389; 84443; 85025; 86762; 86780

== ENCOUNTER 2022-09-09 15:27 | Outpatient (REF) | payer MEDICAID, SELFPAY ==
[2022-09-09 12:32] LABS: *AMPHETAMINES SCREEN URINE Negative (Negative); *BARBITURATES SCREEN URINE Negative (Negative); *BENZODIAZEPINES SCREEN URINE Negative (Negative); Cannabinoids THC Negative (Negative); Cocaine Screen,Urine Negative (Negative); METHADONE URINE SCREEN Negative (Negative); OPIATES URINE SCREEN Negative (Negative)
[2022-09-09 12:35] LABS: Tricyclic Antidepressants Negative (Negative)
[2022-09-16 09:23] LABS: Buprenorphine Negative ng/mL (Cutoff: 5.0); Norbuprenorphine Negative ng/mL (Cutoff: 2.5)
== END 2022-09-09 15:28 | disposition home or self-care (01) ==
LOC: LBN 15:27
PROVIDERS: PCP Nurse Practitioner Family; Visit Provider Advanced Practice Midwife
DX: Z34.91 Encounter for supervision of normal pregnancy, unspecified, first trimester (principal)
CPT/HCPCS: 80307; 80348; 87086

== ENCOUNTER 2022-11-06 00:35 | Outpatient (CLI) | payer MEDICAID, SELFPAY ==
--- NOTE | 2022-11-06 06:15 | DI.US_ITS ---
Exam(s) US OB 2-3 TRIMESTER EXAM: US OB 2-3 TRIMESTER CLINICAL HISTORY: anatomy scan,Z34.92. TECHNIQUE: Transabdominal obstetrical ultrasound performed. COMPARISON: US US OB 2-3 TRIMESTER from 07/18/2021 FINDINGS: Number of fetuses: 1 position: BREECH heart rate: 155bpm Placental location: There is a grade 1 anterior placenta. No evidence of previa. Amniotic fluid index: Amount of fluid is within normal limits. ANATOMICAL SURVEY: Within normal limits. BIOMETRIC DATA: BPD: 4.84cm, 20weeks 4days HC: 18.06cm, 20weeks 3days AC: 14.77cm, 20weeks FL: 3.27cm, 20weeks 1day Cisterna magna: 4.1mm Cerebellum: 2.05cm EFW: 336.97g, 0.75lb, 64.2% Composite Age: 20weeks 2days ISAAC: 03/24/2023 Heart Rate: 155bpm IMPRESSION: 1. Single live intrauterine gestation as above. 2. Normal anatomic survey. DATA REPOSITORY:
== END 2022-11-06 00:55 ==
LOC: DI 00:35
PROVIDERS: PCP Nurse Practitioner Family; Visit Provider Advanced Practice Midwife
DX: Z34.92 Encounter for supervision of normal pregnancy, unspecified, second trimester (principal); Z3A.20 20 weeks gestation of pregnancy
CPT/HCPCS: 76805

== ENCOUNTER 2023-01-01 02:14 | Outpatient (CLI) | payer MEDICAID, SELFPAY ==
[2023-01-01 10:24] LABS: HCT 38.7 % (36.0-46.0); HGB 12.9 g/dL (11.2-15.7); MCH 29.6 pg (27.0-33.0); MCHC 33.3 % (32.0-36.0); MCV 89 fL (80-95); MPV 11.7 fL (8.0-11.0); Platelet Count 140 10^3/uL (130-400); RBC 4.36 10^6/uL (3.93-5.22); RDW 13.1 % (11.7-14.6); RDW-SD 42.6 fL; WBC 7.64 10^3/uL (4.4-10.8)
[2023-01-01 10:31] LABS: Glucose,1 Hr (Glucola) 85 mg/dL (80-140)
== END 2023-01-01 02:15 | disposition home or self-care (01) ==
LOC: LBO 02:14
PROVIDERS: PCP Nurse Practitioner Family; Visit Provider Advanced Practice Midwife
DX: Z34.90 Encounter for supervision of normal pregnancy, unspecified, unspecified trimester (principal)
CPT/HCPCS: 36415; 82950; 85027

== ENCOUNTER 2023-03-04 12:00 | Outpatient (REF) | payer MEDICAID, SELFPAY | END 2023-03-04 12:01 | disposition home or self-care (01) | LOC: LBN 12:00 | PROVIDERS: PCP Nurse Practitioner Family; Visit Provider Advanced Practice Midwife | DX: Z34.93 Encounter for supervision of normal pregnancy, unspecified, third trimester (principal); Z36.85 Encounter for antenatal screening for Streptococcus B; Z3A.36 36 weeks gestation of pregnancy | CPT/HCPCS: 87081 ==

== ENCOUNTER 2023-03-22 05:42 | Observation (INO) | payer MEDICAID, SELFPAY ==
[2023-03-22 03:28] VITALS: BP 119/75; PULSE 97; TEMP 36.8
[2023-03-22 03:43] VITALS: BP 119/75; PULSE 97; RESP 18; TEMP 36.8
--- NOTE | 2023-03-22 05:44 | HPE_ITS ---
Date of service: 03/22/23 Time of Service: 03:30 Assessment and Plan Assessment and plan (1) Uterine contractions: Status: Acute Assessment and plan: A: 28 yo @ 39+2 wks False labor episode at term Periodic variable decels on otherwise reactive NST P: EFW/MELVINA in the DI once pt awakens If WNL will discharge to home OB-HPI Labor/Delivery History of Present Illness Reason for Visit: Rule-out labor Chief Complaint: Uterine Contractions (contractions since 2129, lives an hour away so she decided to come in for a labor check. No bleeding, no ROM.). ISAAC Calculator Estimated Delivery Date Method Current WG Current Estimate 03/27/23 Ultrasound #1 39w 2d Other Estimates 03/16/23 LMP (Certain) 40w 6d History of Present Expected Delivery Route/Plan - CNM FOB/ - Vinny Storm Doesn't want to know gender, will circ if male GBS neg Specific Issues/Plan 1. Declines SMA,CF, Panorama or Quad/AFP 2. BMI 32, early glucola 114 3. Sister had breast cancer, she is BRCA positive - [place] [facility] [place] 4. youngest- stopped. 5. Tdap given 01/2023 Assessment: History Reviewed & Current Review of Systems Narrative: noncontributory PFSH All Active Problems (Updated 03/22/23 @ 05:48 by Ada Valle) Uterine contractions (Acute) Family history of BRCA gene mutation (Acute) (Acute) BMI 31.0-31.9,adult (Chronic) Penicillin allergy (Acute 12/10/16) 05/29/21: low risk for actual PCN allergy, will offer allergy testing [place] [facility] Medical History (Updated 03/22/23 @ 05:48 by Ada Valle) Family history of breast cancer History of lower leg fracture Routine follow-up Thrombocytopenia affecting resolved 11/14/21 on f/up plt count Vaginal delivery Surgical History [place] teeth extracted Family History (Updated 03/04/23 @ 11:18 by Astrid Francisco CNM) Mother Asthma Sister Breast cancer pre cancerous cells, unsure if BRCA testing was done Father Heart disease Stroke age 50, history high iron Social History Smoking/Tobacco Use Status: Never Smoking risk assessment performed?: Yes Alcohol Intake: former Drug use: Never Substance use type: does not use Seatbelt use: always Do you feel safe at home: Yes Do you feel safe in your relationship?: Yes Female Reproductive History Menstrual Age of Menarche: 11 Duration of menses: 6-7 days control method: none History History 5 Para 3 Hx # Term Pregnancies 3 Multiple births 0 Hx # Pregnancies 0 Ectopic pregnancies 0 AB induced 0 Hx Number of Living Children 3 AB spontaneous 1 Past Pregnancies Del. Date GA/Weeks # Preg Succ Route Wgt Sex Labor Lgth Anesth esia Location [facility] 12/31/16 40 No vaginal 7 lb 0.8 oz Male 7 hrs local noemy rodriguez cnm 07/07/18 8 06/09/19 39 No vaginal 6 lb 13 oz Female 6 hours local Primitivo Valle CNM 12/08/21 40 No vaginal 7 lb Female 3 K.Dell cruz CNM Delivery Date: 12/31/16 Last Updated by: Astrid Francisco CNM pt thinks she had 2nd degree lac. Group B strep. Александр Delivery Date: 06/09/19 Last Updated by: Astrid Francisco CNM exact weight unknown, baby weighed 6lbs 13 oz on day after delivery per paperwork. Erin Lara Delivery Date: 12/08/21 Last Updated by: Astrid Francisco CNM prodromal labor and then precipitous. Mellisa Harris Meds Allergies and Home Medications Allergies Allergy/AdvReac Type Severity Reaction Status Date / Time amoxicillin AdvReac Unknown DIARRHEA Verified 03/16/23 14:09 Home Medications Medication Instructions Recorded Confirmed Type vit no.95-ferrous 1 tab PO DAILY ##90 09/21/16 03/16/23 History fumarate 28 mg-folic acid 800 mcg tablet () Exam Physical Exam Vital signs: Temp Pulse Resp BP 98.3 F 97 H 18 119/75 03/22/23 03:43 03/22/23 03:43 03/22/23 03:43 03/22/23 03:43 Vital Signs Reviewed: Yes Constitutional Constitutional: no acute distress, average body habitus and cooperative Detailed Labor and Delivery Exam Amniotic Membrane Status: Intact Contraction Frequency(min): rare Contraction Intensity: Mild Fetus A Heart Rate Baseline: 140 Monitor Accelerations: 15 X 15 Monitor Decelerations: Early and Variable Variability: Moderate (6-25 BPM) Respiratory Exam Respiratory Exam: Normal Cardiovascular Exam Cardiovascular Exam: Normal Abdominal Exam Abdominal Exam: Normal (gravid) Extremities Exam Extremities Exam: Normal Back/Spine/Pelvis Exam Back Exam: Normal Pelvis Adequate: Yes (proven to 7 lb) Psychiatric Exam Psychiatric Exam: Normal Results Results Group Beta Strep: Negative Blood Type: O+ Rubella Status: Immune Varicella Immunity: Immune Risk Assessment Risk for Shoulder Dystocia Historical/Initial OB: POSITIVE FOR: Pre- BMI>30; NEGATIVE FOR: Pelvic Abnormality, Previous Shoulder Dystocia or Previous Macrosomia Increased Risk?: No Date/Initial: 09/09/22 ZAC Delivery Plan @ 36wks: Risk for Pre-Eclampsia Date Initiated/Initials: not indicated. ZAC Yes, if 2 or more: POSITIVE FOR: BMI>30 Risk for Post- Hemorrhage Initial: NEGATIVE FOR: Multiple Gestation, Previous PPH, Known Clotting Deficiency, Grand Multiparity or Anticoagulation At Risk?: No Counseled re: Active Management: Yes Date/Initials: 12/08/21 ZAC Risks Reviewed Risks Reviewed Upon Admission: Yes
--- NOTE | 2023-03-22 05:51 | W.OBNST ---
Date of service: 03/22/23 Time of Service: 04:30 NST Evaluation Reason for NST Reasons for Nonstress Test: OTHER, SEE COMMENT Reason for NST Other: Rule out labor Gestational Age Gestational Age in Weeks and Days: 39 Weeks and 2Days Test and Monitor Explained Test/Monitor Explained: Test Explained, Monitor Explained and Patient Verbalized Understanding Vital Signs Blood Pressure: 119/75 Pulse: 97 Temperature: 98.3 F NST Information Date on Monitor: 03/22/23 Time on Monitor: 03:23 Date off Monitor: 03/22/23 Time off Monitor: 04:46 Total Time on Monitor: 83 NST Interventions: PO Hydration Contraction Frequency: rare, <1 in 10 minutes NST Evaluation Patient States Movement: Present FHR Baseline: 140 Variability: Moderate 6-25 bpm Accelerations: 15x15 Decelerations: Variable NST Results: Reactive Note Ultrasound Done: Other (Pt to have MELVINA/EFW in the DI this morning). NST Note NST Reviewed and Verified by: Ada Valle
[2023-03-22 05:52] VITALS: BP 119/75; PULSE 97; TEMP 36.8
[2023-03-22 06:07] VITALS: BP 121/70; PULSE 85; TEMP 36.8
[2023-03-22 08:39] VITALS: BP 114/70; PULSE 78
--- NOTE | 2023-03-22 09:23 | DI.US_ITS ---
Exam(s) US OB MELVINA WEIGHT EXAM: US OB MELVINA WEIGHT CLINICAL HISTORY: variable decels on NST. TECHNIQUE: Transabdominal obstetrical ultrasound was performed. COMPARISON: US US OB 2-3 TRIMESTER from 11/06/2022 FINDINGS: There is a single viable intrauterine gestation with cardiac activity identified-124 bpm The fetus is presently in cephalic position . Amniotic fluid: There is a mildly low amount of amniotic fluid with MELVINA = 6.4 cm Placental location: The placenta is anterior grade 2,with no evidence of obvious placenta previa. Dating parameters place this at approximately 39 weeks and 1 day gestational age, implying ISAAC of March 28, 2022. BPD measures 38 weeks and 3 days HC measures 41 weeks and 3 days AC measures 38 weeks and 2 days FL measures 38 weeks and 4 days Estimated weight is 3582 gm-7 pounds 14 ounces Fetus is at the 58th percentile on the Hadlock scale. IMPRESSION:: Viable 3rd trimester gestation, as described above, presently in cephalic position Mild oligohydramnios. MELVINA= 6.4 cm Anterior grade 2 placenta. DATA REPOSITORY:
--- NOTE | 2023-03-22 10:29 | DSE_ITS ---
Date of service: 03/22/23 Time of Service: 10:29 DS: Diagnosis Discharge Diagnosis (1) Uterine contractions: Status: Acute Asessment and Plan: 1. contractions spaced out with rest. 2. MELVINA today 6.4, baby is cephalic 58% EFW 3582 3. VE 2.5/60/-2 posterior and soft 4. Patient prefers to go home to await active labor and will RTO in 1 week, We will add MELVINA and NST to next week after visit. Discharge Plan Disposition Patient Disposition: Home Condition: Good Discharge Details Reason For Visit: r/o labor Admit Date/Time: 03/22/23 05:42 Admit Provider: Ada Valle Attending Provider: Ada Valle Primary Care Provider: Elvia Caicedo Hospital Course Hospital Course: No active labor. Occasional variable deceleration noted on tracing but otherwise reactive and ressuring. MELVINA done this morning in DI is 6.4, EFW 58%. VE 2.5/60/- 2 posterior and soft. Expect NVD. Home Meds and New Rx's Prescriptions: Continued PNV cmb#95-ferrous fumarate-FA [] 1 EACH tablet 1 tab PO DAILY MDD 1 Qty: 90 Discharge Instructions Activity:: Activity as Tolerated Equipment/Supplies:: No Equipment Needed Diet:: As Tolerated Discharge Orders Discharge Orders: Discharge Order (Routine); Ordered 03/22/23 Ordered By: Astrid Jeffery OB:DS Summary Contraception Discussed Contraception Discussed: No, Status at Discharge Functional status at discharge: independent ambulation Overall status at discharge: patient is back to baseline Mental Status: mental status grossly normal Speech and Movement: speech and movement normal Mood: congruent mood Affect: normal affect Time Spent with Patient providing and/or coordinating discharge services: Less than 30 minutes Exam Physical Exam Vital signs: Temp Pulse Resp BP 98.3 F 78 18 114/70 03/22/23 06:07 03/22/23 08:39 03/22/23 03:43 03/22/23 08:39 Vital Signs Reviewed: Yes Constitutional Constitutional: no acute distress HEENT Exam HEENT Exam: Normal (visual exam) Respiratory Exam Respiratory Exam: Normal Cardiovascular Exam Cardiovascular Exam: Normal Abdominal Exam Abdomen: Other (gravid, size equals dates) Rectal Exam Rectal Exam: Not Done Exam Comments: Normal exam Extremities Exam Extremity Exam: Normal Skin Exam Skin Exam: Normal Neurological Exam Neurological Exam: Normal Psychiatric Exam Psychiatric Exam: Normal PFSH All Active Problems Uterine contractions (Acute) Family history of BRCA gene mutation (Acute) (Acute) BMI 31.0-31.9,adult (Chronic) Penicillin allergy (Acute 12/10/16) 05/29/21: low risk for actual PCN allergy, [place] offer allergy testing [place] [facility] [place] Medical History Family history of breast cancer History of lower leg fracture Routine follow-up Thrombocytopenia affecting resolved 11/14/21 on f/up plt count Vaginal delivery Surgical History [place] teeth extracted Family History Mother Asthma Sister Breast cancer pre cancerous cells, unsure if BRCA testing was done Father Heart disease Stroke age 50, history high iron Social History Smoking/Tobacco Use Status: Never Smoking risk assessment performed?: Yes Alcohol Intake: former Drug use: Never Substance use type: does not use Seatbelt use: always Do you feel safe at home: Yes Do you feel safe in your relationship?: Yes Female Reproductive History Menstrual Age of Menarche: 11 Duration of menses: 6-7 days control method: none History History 5 Para 3 Hx # Term Pregnancies 3 Multiple births 0 Hx # Pregnancies 0 Ectopic pregnancies 0 AB induced 0 Hx Number of Living Children 3 AB spontaneous 1 Past Pregnancies Del. Date GA/Weeks # Preg Succ Route Wgt Sex Labor Lgth Anesth esia Location Prov [facility] 12/31/16 40 No vaginal 7 lb 0.8 oz Male 7 hrs local noemy rodriguez cnm 07/07/18 8 06/09/19 39 No vaginal 6 lb 13 oz Female 6 hours local Primitivo Valle CNM 12/08/21 40 No vaginal 7 lb Female 3 K.Dell cruz CNM Delivery Date: 12/31/16 Last Updated by: Astrid Francisco CNM pt thinks she had 2nd degree lac. Group B strep. Александр Delivery Date: 06/09/19 Last Updated by: Astrid Francisco CNM exact weight unknown, baby weighed 6lbs 13 oz on day after delivery per paperwork. Erin Lara Delivery Date: 12/08/21 Last Updated by: Astrid Francisco CNM prodromal labor and then precipitous. Mellisa Harris DS: Data Vitals/I&O Vitals and I&O: Vital Signs Temperature 98.3 F 03/22/23 06:07 Temperature 98.3 F 03/22/23 05:52 Temperature Source Oral 03/22/23 06:07 Pulse 78 03/22/23 08:39 Pulse 97 03/22/23 05:52 Pulse Rhythm Regular 03/22/23 03:43 Respiratory Rate 18 03/22/23 03:43 Respiratory Depth Normal 03/22/23 03:43 Blood Pressure 114/70 03/22/23 08:39 Blood Pressure 119/75 03/22/23 05:52 Oxygen Delivery Method Room Air 03/22/23 03:43 Oxygen Flow Rate 0 03/22/23 03:43 Intake & Output 03/21/23 03/21/23 03/22/23 11:59 23:59 11:59 Weight 215 lb
== END 2023-03-22 10:40 | disposition home or self-care (01) ==
PROVIDERS: Admitting Provider Advanced Practice Midwife; PCP Nurse Practitioner Family; Visit Provider Advanced Practice Midwife
DX: O47.03 False labor before 37 completed weeks of gestation, third trimester (principal); Z3A.39 39 weeks gestation of pregnancy
CPT/HCPCS: 76816

== ENCOUNTER 2023-03-27 03:52 | Inpatient (IN) | payer MEDICAID, SELFPAY ==
[2023-03-27] VITALS (17 sets, daily range): BP systolic 102–124; BP diastolic 53–76; PULSE 78–99; RESP 12–20; TEMP 36.4–37; O2SAT 99
--- NOTE | 2023-03-27 04:36 | HPE_ITS ---
Date of service: 03/27/23 Time of Service: 04:36 Assessment and Plan Assessment and plan (1) Uterine contractions: Status: Acute Assessment and plan: A: 28 yo @ 40 wks Spontaneous active labor Low risk multipara, GBS negative Category 1 tracing P: Admit to BC, CBC and T&S Expectant management Comfort measures as pt desires Anticipate OB-HPI Labor/Delivery History of Present Illness Reason for Visit: R/O Labor Chief Complaint: Uterine Contractions (Began at around 0300, stronger then before, bloody mucous seen. No ROM, no vomiting.). ISAAC Calculator Estimated Delivery Date Method Current WG Current Estimate 03/27/23 Ultrasound #1 40w 0d Other Estimates 03/16/23 LMP (Certain) 41w 4d History of Present Expected Delivery Route/Plan - CNM FOB/ - Vinny Storm Doesn't want to know gender, will circ if male GBS neg Specific Issues/Plan 1. Declines SMA,CF, Panorama or Quad/AFP 2. BMI 32, early glucola 114 3. Sister had breast cancer, she is BRCA positive - referral made to genetics dept. at [facility] [place]. 4. youngest- stopped. 5. Tdap given 01/2023 Assessment: History Reviewed & Current Review of Systems Narrative: ROS completed and found to be noncontributory other then HPI PFSH All Active Problems Uterine contractions (Acute) Family history of BRCA gene mutation (Acute) (Acute) BMI 31.0-31.9,adult (Chronic) Penicillin allergy (Acute 12/10/16) 05/29/21: low risk for actual PCN allergy, will offer allergy testing at [facility] [place] Medical History Family history of breast cancer History of lower leg fracture Routine follow-up Thrombocytopenia affecting resolved 11/14/21 on f/up plt count Vaginal delivery Surgical History [place] teeth extracted Family History Mother Asthma Sister Breast cancer pre cancerous cells, unsure if BRCA testing was done Father Heart disease Stroke age 50, history high iron Social History Smoking/Tobacco Use Status: Never Smoking risk assessment performed?: Yes Alcohol Intake: former Drug use: Never Substance use type: does not use Seatbelt use: always Do you feel safe at home: Yes Do you feel safe in your relationship?: Yes Female Reproductive History Menstrual Age of Menarche: 11 Duration of menses: 6-7 days control method: none History History 5 Para 3 Hx # Term Pregnancies 3 Multiple births 0 Hx # Pregnancies 0 Ectopic pregnancies 0 AB induced 0 Hx Number of Living Children 3 AB spontaneous 1 Past Pregnancies Del. Date GA/Weeks # Preg Succ Route Wgt Sex Labor Lgth Anesth esia Location Prov [facility] 12/31/16 40 No vaginal 7 lb 0.8 oz Male 7 hrs local noemy rodriguez cnm 07/07/18 8 06/09/19 39 No vaginal 6 lb 13 oz Female 6 hours local Primitivo Valle CNM 12/08/21 40 No vaginal 7 lb Female 3 K.Dell cruz CNM Delivery Date: 12/31/16 Last Updated by: Astrid Francisco CNM pt thinks she had 2nd degree lac. Group B strep. Александр Delivery Date: 06/09/19 Last Updated by: Astrid Francisco CNM exact weight unknown, baby weighed 6lbs 13 oz on day after delivery per paperwork. Erin Lara Delivery Date: 12/08/21 Last Updated by: Astrid Francisco CNM prodromal labor and then precipitous. Mellisa Harris Meds Allergies and Home Medications Allergies Allergy/AdvReac Type Severity Reaction Status Date / Time amoxicillin AdvReac Unknown DIARRHEA Verified 03/22/23 09:29 Home Medications Medication Instructions Recorded Confirmed Type vit no.95-ferrous 1 tab PO DAILY ##90 09/21/16 03/22/23 History fumarate 28 mg-folic acid 800 mcg tablet () Exam Physical Exam Vital signs: 109/69, pulse 91, afebrile Vital Signs Reviewed: Yes Constitutional Constitutional: moderate distress, average body habitus and cooperative Detailed Labor and Delivery Exam Dilation: 6 Effacement (%): 90 station: -1 Cervix position: mid Consistency: soft Amniotic Membrane Status: Intact Contraction Frequency(min): q5 min Contraction Intensity: Moderate/Strong Fetus A Heart Rate Baseline: 135 Monitor Accelerations: Present Monitor Decelerations: None Variability: Moderate (6-25 BPM) Categories: Category I Est. Weight: 7 lb 4.404 oz Est. Weight: 3300 gms HEENT Exam HEENT Exam: Normal Neck Exam Neck Exam: Normal Chest/Brest/Axilla Exam Chest Exam: Normal Breast Exam Breast Exam: Not Done Respiratory Exam Respiratory Exam: Normal Cardiovascular Exam Cardiovascular Exam: Normal Abdominal Exam Abdominal Exam: Normal (Gravid, nontender) Rectal Exam Rectal Exam: Normal Exam Exam: Normal Extremities Exam Extremities Exam: Normal Back/Spine/Pelvis Exam Back Exam: Normal Pelvis Adequate: Yes (proven to 7 lb) Skin Exam Skin Exam: Normal Neurological Exam Neurological Exam: Normal Psychiatric Exam Psychiatric Exam: Normal Results Results Group Beta Strep: Negative Blood Type: O+ Rubella Status: Immune Varicella Immunity: Immune Risk Assessment Risk for Shoulder Dystocia Historical/Initial OB: POSITIVE FOR: Pre- BMI>30; NEGATIVE FOR: Pelvic Abnormality, Previous Shoulder Dystocia or Previous Macrosomia 40 Weeks: NEGATIVE FOR: EFW> 4500 gms, Maternal Weight Gain >40lb or Post Dates Increased Risk?: No Date/Initial: 09/09/22 Delivery Plan @ 36wks: Risk for Pre-Eclampsia Date Initiated/Initials: not indicated. Yes, if 2 or more: POSITIVE FOR: BMI>30 Risk for Post- Hemorrhage Initial: NEGATIVE FOR: Multiple Gestation, Previous PPH, Known Clotting Deficiency, Grand Multiparity or Anticoagulation At Risk?: No Counseled re: Active Management: Yes Date/Initials: 12/08/21 Risks Reviewed Risks Reviewed Upon Admission: Yes
[2023-03-27 05:12] LABS: HCT 37.5 % (36.0-46.0); HGB 12.7 g/dL (11.2-15.7); MCH 29.5 pg (27.0-33.0); MCHC 33.9 % (32.0-36.0); MCV 87 fL (80-95); MPV 12.7 fL (8.0-11.0); Platelet Count 117 10^3/uL (130-400); RDW 13.3 % (11.7-14.6); RDW-SD 41.3 fL; WBC 9.09 10^3/uL (4.4-10.8)
--- NOTE | 2023-03-27 07:10 | W.PM.OBNL1 ---
Date of service: 03/27/23 Time of Service: 07:10 Pelvic Exam Dilation: 8 (bloody show) Effacement (%): 100 station: -1 Contractions Monitor Mode: Palpation Contraction Frequency(min): q2-3 Intensity: Moderate/Strong Fetus A Monitor: Doppler Heart Rate Baseline: 140 FHR Rhythm: Regular Characteristics: Normal Accelerations: Present Decelerations: None Amniotic Membrane Status: Intact (tense BBOW) Assessment and Plan Assessment and plan (1) Uterine contractions: Status: Acute Assessment and plan: A: active labor, progressing P: Anticipate Objective Abnormal lab results 03/27/23 Range/Units 05:00 Plt Count 117 L (130-400) 10^3/uL MPV 12.7 H (8.0-11.0) fL Temp Pulse Resp BP Pulse Ox 97.7 F 88 16 124/70 99 03/27/23 06:27 03/27/23 06:27 03/27/23 04:57 03/27/23 06:27 03/27/23 04:57 Laboratory Results WBC 9.09 10^3/uL (4.4-10.8) 03/27/23 05:00 RBC 4.30 10^6/uL (3.93-5.22) 03/27/23 05:00 Hgb 12.7 g/dL (11.2-15.7) 03/27/23 05:00 Hct 37.5 % (36.0-46.0) 03/27/23 05:00 MCV 87 fL (80-95) 03/27/23 05:00 MCH 29.5 pg (27.0-33.0) 03/27/23 05:00 MCHC 33.9 % (32.0-36.0) 03/27/23 05:00 RDW 13.3 % (11.7-14.6) 03/27/23 05:00 Plt Count 117 10^3/uL (130-400) L 03/27/23 05:00 MPV 12.7 fL (8.0-11.0) H 03/27/23 05:00 Patient ABO/Rh O Positive 03/27/23 05:00 Antibody Screen NEGATIVE 03/27/23 05:00 Subjective Interval history since last seen: Increasing pain and pressure
[2023-03-27] MEDS: Oxytocin 10 UNITS/ML VIAL IM (07:54)
--- NOTE | 2023-03-27 08:11 | W.OBDELIVERY ---
Date of service: 03/27/23 Time of Service: 08:11 OB Labor/ Delivery Information Baby A Delivery Delivery Method: Spontaneaous Presentation: Cephalic Cephalic Position: Vertex Vertex Position: Left Occipital Anterior Breech Position: N/A Cord Description-Baby A: 3 Vessels Amniotic Fluid: Clear Estimated Blood Loss: 200 Delivery Outcome: Liveborn Transferred: Remains with Mother Note: Pt using nitrous effectively and at bedside providing support, spontaneous urges to bear down noted, SVE anterior lip with vtx @ 0 station, AROM with pt consent for clear fluid, FHT's 120-135 per doptone. Shortly thereafter of a vigorous male infant while pt in LLP over intact perineum, shoulders delivered easily, right nuchal hand with cord loop over right shoulder, right arm delivered through loop of cord to allow delivery of the body. Infant passed between pt's legs and placed in her arms, pitocin 10 units IM given, cord flaccid and ceased pulsing at 4 minutes, clamped and cut by pt, cord blood collected, Hilario placenta delivered intact with 3VC. Vulva and vagina inspected and found to be intact, fundus firm below umbilicus, lochia is minimal, strong family bonding observed, apgars 9/9, weight 3290 gms. Providers Nurse Project Construction Assistant Manager: Ada Valle Nurse: Surendra Mederos Nurse: Andres Perkins Labor/Delivery Information Number of Babies in Womb: 1 Steroids Given: None Group Beta Strep: Negative Rubella Status: Immune Blood Type: O+ Varicella Immunity: Immune Medication in Delivery: pitocin 10 units IM Maternal Complications: None Shoulder Dystocia: No Stages of Labor Onset of Labor Date: 03/27/23 Onset of Labor Time: 02:49 Complete Dilatation Date: 03/27/23 Complete Dilatation Time: 07:46 Labor - Stage 1 Duration: 4 hours and 57 minutes ROM Baby A: 03/27/23 ROM Baby A: 07:44 Delivery Date-Baby A: 03/27/23 Delivery Time-Baby A: 07:53 Labor Stage 2 Duration: 7 minutes Placenta Delivery Date-Baby A: 03/27/23 Placenta Delivery Time-Baby A: 07:58 Labor-Stage 3 Duration: 5 minutes Total Length of Labor-Baby A: 5 hours and 4 minutes Placenta Cultured: No Placenta Status: Delivered Baby A Gender: Male Gestational Status: Term (39-41.6 wks) weight: 7 lb 4.051 oz Weight Comment: 3290 gms Score-1 Minute Interval(Baby A) Heart Rate-1 minute: 100 BPM or Greater Respiratory Effort- 1 minute: Spontaneous/Strong Cry Muscle Tone-1 minute: Active Movement Reflex Response-1 minute: Prompt Response Color-1 minute: Bluish Hands or Feet Score-5 Minute Interval(Baby A) Heart Rate- 5 minute: 100 BPM or Greater Respiratory Effort-5 minute: Spontaneous/Strong Cry Muscle Tone-5 minute: Active Movement Reflex Response-5 minute: Prompt Response Color-5 minute: Bluish Hands or Feet
[2023-03-27] MEDS: Ibuprofen 600 MG TAB PO ×2 (08:40→15:39)
[2023-03-27] MEDS: Acetaminophen 325 MG TAB 650 MG PO ×2 (08:40→15:38)
[2023-03-27] MEDS: Dibucaine 1% 28 GM TUBE TP (15:40)
[2023-03-27] MEDS: Hamamelis Leaf/Glycerin 100 EACH BOX PR (15:41)
[2023-03-27] MEDS: oxyCODONE 5 mg/Acetaminophen 325 mg TAB 1 TAB PO ×2 (17:35→20:45)
[2023-03-28] MEDS: oxyCODONE 5 mg/Acetaminophen 325 mg TAB 1 TAB PO ×2 (00:34→04:10)
[2023-03-28 03:08] VITALS: BP 107/71; PULSE 81; TEMP 36.5
[2023-03-28 07:30] VITALS: BP 101/66; PULSE 81; RESP 12; TEMP 36.8
[2023-03-28] MEDS: Ibuprofen 600 MG TAB PO (07:42)
--- NOTE | 2023-03-28 08:43 | DSE_ITS ---
Date of service: 03/28/23 Time of Service: 08:43 DS: Diagnosis Discharge Diagnosis (1) Uterine contractions: Status: Acute Asessment and Plan: 1. Reviewed PP warning signs and when to call 2. Will have [facility] call to set up PP appointments for 2 and 6 weeks PP 3. RX for 10 tablets of Percocet 5/325 to take 1 every 3 hours prn for cramping sent to pharmacy 4. Plans NFP for contraception. Discharge Plan Disposition Patient Disposition: Home Condition: Good Discharge Details Reason For Visit: Term Labor Admit Date/Time: 03/27/23 03:52 Admit Provider: Ada Valle Attending Provider: Ada Valle Primary Care Provider: Elvia Caicedo Hospital Course Hospital Course: Normal labor and NVD over intact perineum. course complicated by painful cramping especially with nursing. Responded well to a tablet of 5/325 Percocet. Will return to office in 2 and 6 weeks PP. Home Meds and New Rx's Prescriptions: New oxycodone-acetaminophen 5-325 mg Tablet 1 tab PO Q3H PRN PRNQty: 10 0RF Continued PNV cmb#95-ferrous fumarate-FA [] 1 EACH tablet 1 tab PO DAILY MDD 1 Qty: 90 Discharge Instructions Instructions: Oxycodone/Acetaminophen (By mouth), Depression (GEN) Stand Alone Forms: BC Instructions, BC Post Vaginal Delive r Activity:: Activity as Tolerated Equipment/Supplies:: No Equipment Needed Diet:: As Tolerated Discharge Orders Discharge Orders: Discharge Order (Routine); Ordered 03/28/23 Ordered By: Astrid Jeffery OB:DS Summary Summary Vaginal Delivery Method: Spontaneaous Episiotomy Description: None Laceration Description: None Contraception Discussed Contraception Discussed: Yes Contraceptive Plan: Not planning to use (NFP), [place] Gender-Baby A: Male weight: 7 lb 4.051 oz Status at Discharge Functional status at discharge: independent ambulation Overall status at discharge: patient is back to baseline Mental Status: mental status grossly normal Speech and Movement: speech and movement normal Mood: congruent mood Affect: normal affect Time Spent with Patient providing and/or coordinating discharge services: Less than 30 minutes Exam Physical Exam Vital signs: Temp Pulse Resp BP Pulse Ox 98.2 F 81 12 101/66 99 03/28/23 07:30 03/28/23 07:30 03/28/23 07:30 03/28/23 07:30 03/27/23 07:48 Vital Signs Reviewed: Yes Constitutional Constitutional: no acute distress, average body habitus and cooperative HEENT Exam HEENT Exam: Normal Neck Exam Neck Exam: Normal (normal visual inspection) Respiratory Exam Respiratory Exam: Normal Cardiovascular Exam Cardiovascular Exam: Normal Abdominal Exam Abdomen: Other (normal exam) Fundal Exam Fundus: Below Umbilicus and Firm Comment: small lochia noted. KH Rectal Exam Rectal Exam: Not Done Exam Perineum: Intact and Normal Extremities Exam Extremity Exam: Normal (denies calf tenderness) and Full ROM Back/Spine/Pelvis Exam Back Exam: Normal Skin Exam Skin Exam: Normal Neurological Exam Neurological Exam: Normal Psychiatric Exam Psychiatric Exam: Normal PFSH All Active Problems Uterine contractions (Acute) Family history of BRCA gene mutation (Acute) (Acute) BMI 31.0-31.9,adult (Chronic) Penicillin allergy (Acute 12/10/16) 05/29/21: low risk for actual PCN allergy, will offer allergy testing at [facility] Medical History Family history of breast cancer History of lower leg fracture Routine follow-up Thrombocytopenia affecting resolved 11/14/21 on f/up plt count Vaginal delivery Surgical History [place] teeth extracted Family History Mother Asthma Sister Breast cancer pre cancerous cells, unsure if BRCA testing was done Father Heart disease Stroke age 50, history high iron Social History Smoking/Tobacco Use Status: Never Smoking risk assessment performed?: Yes Alcohol Intake: former Drug use: Never Substance use type: does not use Seatbelt use: always Do you feel safe at home: Yes Do you feel safe in your relationship?: Yes Female Reproductive History Menstrual Age of Menarche: 11 Duration of menses: 6-7 days control method: none History History 5 Para 3 Hx # Term Pregnancies 3 Multiple births 0 Hx # Pregnancies 0 Ectopic pregnancies 0 AB induced 0 Hx Number of Living Children 3 AB spontaneous 1 Past Pregnancies Del. Date GA/Weeks # Preg Succ Route Wgt Sex Labor Lgth Anesth esia Location Prov [facility] 12/31/16 40 No vaginal 7 lb 0.8 oz Male 7 hrs local noemy alba 07/07/18 8 06/09/19 39 No vaginal 6 lb 13 oz Female 6 hours local Primitivo Valle CNM 12/08/21 40 No vaginal 7 lb Female 3 K.Dell cruz CNM Delivery Date: 12/31/16 Last Updated by: Astrid Francisco CNM pt thinks she had 2nd degree lac. Group B strep. Александр Delivery Date: 06/09/19 Last Updated by: Astrid Francisco CNM exact weight unknown, baby weighed 6lbs 13 oz on day after delivery per paperwork. Erin Lara Delivery Date: 12/08/21 Last Updated by: Astrid Francisco CNM prodromal labor and then precipitous. Mellisa Harris DS: Data Vitals/I&O Vitals and I&O: Vital Signs Temperature 98.2 F 03/28/23 07:30 Temperature Source Oral 03/28/23 07:30 Pulse 81 03/28/23 07:30 Pulse Rhythm Regular 03/28/23 07:30 Respiratory Rate 12 03/28/23 07:30 Respiratory Depth Normal 03/27/23 19:00 Blood Pressure 101/66 03/28/23 07:30 Blood Pressure Mean 77 03/28/23 07:30 Pulse Oximetry 99 03/27/23 07:48 Oxygen Delivery Method Room Air 03/27/23 04:38 Oxygen Flow Rate 0 03/27/23 04:38 Pain Level 5 03/28/23 07:42 Intake & Output 03/27/23 03/27/23 03/28/23 11:59 23:59 11:59 Intake Total 500 / 500 Output Total 300 / 1550 1250 / 1550 Balance -300 / -1050 -750 / -1050 Weight 215 lb Intake: Oral 500 / 500 Output: Urine 300 / 1550 1250 / 1550 Other: Urine Color [place] Yellow Urine Appearance Clear Urine Odor None Voiding Methods Toilet
== END 2023-03-28 12:30 | disposition home or self-care (01) | DRG 807 ==
PROVIDERS: Admitting Provider Advanced Practice Midwife; PCP Nurse Practitioner Family; Visit Provider Advanced Practice Midwife
DX: O69.81X0 Labor and delivery complicated by cord around neck, without compression, not applicable or unspecified (principal); Z37.0 Single live birth; Z3A.40 40 weeks gestation of pregnancy; Z80.3 Family history of malignant neoplasm of breast
CPT/HCPCS: 36415; 85027; 86850; 86900; 86901; J2590

== ENCOUNTER 2023-10-20 02:57 | Outpatient (CLI) | payer MEDICAID, SELFPAY ==
[2023-10-20 11:00] LABS: Abs Immature Grans 0.01 10^3/uL (0.0-0.06); Absolute Basophil Count 0.03 10^3/uL (0.0-0.2); Absolute Eosinophil Count 0.04 10^3/uL (0.0-0.7); Absolute Lymphocyte Count 1.51 10^3/uL (1.2-3.4); Absolute Monocyte Count 0.35 10^3/uL (0.1-0.8); Absolute Neutrophil Count 5.78 10^3/uL (1.2-6.7); Basophils % 0.4; Eosinophils % 0.5; HCT 37.3 % (36.0-46.0); HGB 12.5 g/dL (11.2-15.7); Immature Grans % 0.1; Lymphocytes % 19.6; MCH 29.1 pg (27.0-33.0); MCHC 33.5 % (32.0-36.0); MCV 87 fL (80-95); MPV 12.4 fL (8.0-11.0); Monocytes % 4.5; Neutrophils % 74.9; RDW 12.6 % (11.7-14.6); RDW-SD 40.1 fL; WBC 7.72 10^3/uL (4.4-10.8)
[2023-10-20 11:11] LABS: Glucose,1 Hr (Glucola) 97 mg/dL (80-140)
[2023-10-20 11:27] LABS: Diff Comment Diff Reviewed; Platelet Count 88 10^3/uL (130-400); RBC Morphology Normal
[2023-10-20 18:19] LABS: Hepatitis B Surface Ag Negative (Negative)
[2023-10-20 18:58] LABS: Hepatitis C Ab w Rflx HCV PCR Negative (Negative)
[2023-10-20 19:00] LABS: HIV-1/2 Ag & Ab Screen Negative (Negative)
[2023-10-21 08:38] LABS: Varicella IgG Antibody Positive (See Note)
[2023-10-21 08:42] LABS: Rubella IgG Ab (UVM) Positive (See Note)
[2023-10-22 15:08] LABS: Syphilis IgG w/Reflex Nonreactive (Nonreactive)
== END 2023-10-20 02:58 | disposition home or self-care (01) ==
LOC: LBO 02:57
PROVIDERS: PCP Nurse Practitioner Family; Visit Provider Advanced Practice Midwife
DX: Z34.91 Encounter for supervision of normal pregnancy, unspecified, first trimester
CPT/HCPCS: 36415; 82950; 86787; 86803; 86850; 86900; 86901; 87340; 87389; 85025; 86762; 86780

== ENCOUNTER 2023-10-20 10:58 | Outpatient (REF) | payer MEDICAID, SELFPAY ==
[2023-10-20 13:44] LABS: *AMPHETAMINES SCREEN URINE Negative (Negative); *BARBITURATES SCREEN URINE Negative (Negative); *BENZODIAZEPINES SCREEN URINE Negative (Negative); Cannabinoids THC Negative (Negative); Cocaine Screen,Urine Negative (Negative); METHADONE URINE SCREEN Negative (Negative); OPIATES URINE SCREEN Negative (Negative)
[2023-10-20 13:46] LABS: Tricyclic Antidepressants Negative (Negative)
[2023-10-21 14:14] LABS: Chlamydia Result Negative (Negative); GC Result Negative (Negative)
[2023-10-26 19:32] LABS: Buprenorphine Negative ng/mL (Cutoff: 5.0); Norbuprenorphine Negative ng/mL (Cutoff: 2.5)
== END 2023-10-20 10:59 | disposition home or self-care (01) ==
LOC: LBN 10:58
PROVIDERS: PCP Nurse Practitioner Family; Visit Provider Advanced Practice Midwife
DX: Z34.92 Encounter for supervision of normal pregnancy, unspecified, second trimester (principal)
CPT/HCPCS: 80307; 80348; 87491; 87591; 87086

== ENCOUNTER 2023-12-08 12:05 | Outpatient (CLI) | payer MEDICAID, SELFPAY ==
[2023-12-08 12:25] LABS: Abs Immature Grans 0.05 10^3/uL (0.0-0.06); Absolute Basophil Count 0.04 10^3/uL (0.0-0.2); Absolute Eosinophil Count 0.07 10^3/uL (0.0-0.7); Absolute Lymphocyte Count 2.43 10^3/uL (1.2-3.4); Absolute Monocyte Count 0.47 10^3/uL (0.1-0.8); Absolute Neutrophil Count 6.83 10^3/uL (1.2-6.7); Basophils % 0.4; Eosinophils % 0.7; HCT 37.8 % (36.0-46.0); HGB 12.6 g/dL (11.2-15.7); Immature Grans % 0.5; Lymphocytes % 24.6; MCH 28.6 pg (27.0-33.0); MCHC 33.3 % (32.0-36.0); MCV 86 fL (80-95); Monocytes % 4.8; RDW 12.8 % (11.7-14.6); RDW-SD 40.1 fL; WBC 9.89 10^3/uL (4.4-10.8)
[2023-12-08 12:36] LABS: Platelet Count 77 10^3/uL (130-400)
[2023-12-08 12:37] LABS: Diff Comment Diff Reviewed; RBC Morphology Normal
[2023-12-08 12:39] LABS: INR 0.9 (0.9-1.1); PTT Activated 27.1 sec (23.6-32.8); Prothrombin Time 9.4 sec (9.1-11.1)
[2023-12-08 12:45] LABS: ALT 24 U/L (14-59); AST 14 U/L (15-37); Albumin 3.4 g/dL (3.4-5.0); Alkaline Phosphatase 83 U/L (46-116); Anion Gap 13.1 mmol/L (3-11); BUN 11 mg/dL (7-18); Bilirubin, Total 0.3 mg/dL (0.2-1.0); CO2 23.9 mmol/L (21.0-32.0); CREATININE 0.6 mg/dL (0.55-1.02); Calcium 9.5 mg/dL (8.5-10.1); Chloride 100 mmol/L (98-107); Estimated GFR 125.31 (mL/min/1.73m2); Glucose 79 mg/dL (74-106); Potassium 3.6 mmol/L (3.5-5.1); Sodium 137 mmol/L (136-145)
[2023-12-08 12:57] LABS: D-Dimer 271 ng/mlFEU (<500)
[2023-12-08 22:23] LABS: Fibrinogen 443 mg/dL (171-384)
[2023-12-09 11:49] LABS: Thrombin Time 13.6 secs (10.3-16.9)
== END 2023-12-08 12:06 | disposition home or self-care (01) ==
LOC: LBO 12:05
PROVIDERS: PCP Nurse Practitioner Family; Visit Provider Internal Medicine Hematology & Oncology
DX: D69.6 Thrombocytopenia, unspecified (principal)
CPT/HCPCS: 36415; 80053; 85384; 85385; 85670; 86850; 86900; 86901; 85025; 85379; 85610; 85730

== ENCOUNTER → 2023-12-16 02:26 | Outpatient (CLI) | payer MEDICAID, SELFPAY ==
--- NOTE | 2023-12-16 14:45 | DI.US_ITS ---
Exam(s) US OB 2-3 TRIMESTER EXAM: US OB 2-3 TRIMESTER CLINICAL HISTORY: , SURVEY, Z34.90. TECHNIQUE: Transabdominal obstetrical ultrasound was performed. COMPARISON: US POCUS EXAM from 09/30/2023 FINDINGS: There is a single viable intrauterine gestation with cardiac activity identified-159 bpm. Amniotic fluid: There is a normal amount of amniotic fluid. Placental location: The placenta is anterior grade 1,with no evidence of placenta previa.Distance fro m the tip of placenta to the internal cervical os is 5.2 cm. ANATOMY: A 3 vessel umbilical cord is seen. A four-chamber cardiac view was obtained. Right and left ventricular outflow tracts were imaged. There are no obvious abnormalities of the spinal column evident. There is no obvious abnormal ity of the anterior abdominal wall. stomach and urinary bladder are identified. There i s slight prominence of both renal pelves but PD/KD ratios are less than 50 percent there is no obvious caliectasis in the kidneys. No evidence of cord plexus cysts in the brain. Technologist made note that there is possible left upper lip/palate. This is difficult to verify on these images. Recommend repeat scanning in 2 weeks' [address] parameters place this at approximately 21 weeks gestational age. BPD measures 20 weeks and 4 days HC measures 21 weeks and 0 days AC measures 21 weeks and 2 days FL measures 21 weeks and 2 days Estimated weight is 402 gm-0 pounds 14 ounces Fetus is at the greater than 97th percentile on the Hadlock scale. IMPRESSION:: Single viable intrauterine gestation which is approximately 21 weeks gestational age, i mplying an ISAAC of 04/27/2024. The placenta is anterior with no evidence of placenta previa. There is a normal amount of amniotic fluid. Today's study revealed subtle evidence of possible cleft upper lip/palate according to the scanning t echnologist. This is difficult to verify on these images. Recommend repeat scanning in 2 weeks' arsenio e. DATA REPOSITORY:
== END ==
PROVIDERS: PCP Nurse Practitioner Family; Visit Provider Advanced Practice Midwife
DX: Z34.92 Encounter for supervision of normal pregnancy, unspecified, second trimester (principal)
CPT/HCPCS: 76805

== ENCOUNTER 2023-12-21 04:17 | Outpatient (CLI) | payer MEDICAID, SELFPAY ==
[2023-12-21 10:14] LABS: Abs Immature Grans 0.05 10^3/uL (0.0-0.06); Absolute Basophil Count 0.03 10^3/uL (0.0-0.2); Absolute Eosinophil Count 0.06 10^3/uL (0.0-0.7); Absolute Lymphocyte Count 1.79 10^3/uL (1.2-3.4); Absolute Monocyte Count 0.39 10^3/uL (0.1-0.8); Absolute Neutrophil Count 5.44 10^3/uL (1.2-6.7); Basophils % 0.4; Eosinophils % 0.8; HCT 37.8 % (36.0-46.0); HGB 12.4 g/dL (11.2-15.7); Immature Grans % 0.6; Lymphocytes % 23.1; MCH 29.1 pg (27.0-33.0); MCHC 32.8 % (32.0-36.0); MCV 89 fL (80-95); MPV 12.9 fL (8.0-11.0); Neutrophils % 70.1; RBC 4.26 10^6/uL (3.93-5.22); RDW 13.1 % (11.7-14.6); RDW-SD 42.8 fL; WBC 7.76 10^3/uL (4.4-10.8)
[2023-12-21 10:27] LABS: Diff Comment PLT Morph Reviewed; Platelet Count 70 10^3/uL (130-400); RBC Morphology Normal
== END 2023-12-21 04:18 | disposition home or self-care (01) ==
LOC: LBO 04:17
PROVIDERS: PCP Nurse Practitioner Family; Visit Provider Internal Medicine Hematology & Oncology
DX: D69.6 Thrombocytopenia, unspecified (principal)
CPT/HCPCS: 36415; 85025

== ENCOUNTER 2024-01-10 05:54 | Outpatient (CLI) | payer MEDICAID, SELFPAY ==
[2024-01-10 12:58] LABS: Abs Immature Grans 0.04 10^3/uL (0.0-0.06); Absolute Basophil Count 0.03 10^3/uL (0.0-0.2); Absolute Eosinophil Count 0.03 10^3/uL (0.0-0.7); Absolute Lymphocyte Count 1.09 10^3/uL (1.2-3.4); Absolute Monocyte Count 0.51 10^3/uL (0.1-0.8); Absolute Neutrophil Count 5.22 10^3/uL (1.2-6.7); Basophils % 0.4; Eosinophils % 0.4; HCT 35.3 % (36.0-46.0); HGB 11.8 g/dL (11.2-15.7); Immature Grans % 0.6; Lymphocytes % 15.8; MCH 29.6 pg (27.0-33.0); MCHC 33.4 % (32.0-36.0); MCV 89 fL (80-95); Monocytes % 7.4; Neutrophils % 75.4; RBC 3.98 10^6/uL (3.93-5.22); RDW-SD 42.6 fL; WBC 6.92 10^3/uL (4.4-10.8)
[2024-01-10 13:07] LABS: Diff Comment Diff Reviewed; Platelet Count 52 10^3/uL (130-400); RBC Morphology Normal
== END 2024-01-10 05:55 | disposition home or self-care (01) ==
LOC: LBO 05:54
PROVIDERS: PCP Nurse Practitioner Family; Visit Provider Internal Medicine Hematology & Oncology
DX: D69.6 Thrombocytopenia, unspecified (principal)
CPT/HCPCS: 36415; 85025

== ENCOUNTER 2024-01-24 05:53 | Outpatient (CLI) | payer MEDICAID, SELFPAY ==
[2024-01-24 16:30] LABS: Abs Immature Grans 0.05 10^3/uL (0.0-0.06); Absolute Basophil Count 0.03 10^3/uL (0.0-0.2); Absolute Eosinophil Count 0.06 10^3/uL (0.0-0.7); Absolute Lymphocyte Count 2.35 10^3/uL (1.2-3.4); Absolute Monocyte Count 0.64 10^3/uL (0.1-0.8); Absolute Neutrophil Count 6.64 10^3/uL (1.2-6.7); Basophils % 0.3; Eosinophils % 0.6; HCT 38.1 % (36.0-46.0); HGB 12.5 g/dL (11.2-15.7); Immature Grans % 0.5; Lymphocytes % 24.1; MCH 29.2 pg (27.0-33.0); MCHC 32.8 % (32.0-36.0); MCV 89 fL (80-95); MPV 11.9 fL (8.0-11.0); Monocytes % 6.6; Neutrophils % 67.9; Platelet Count 120 10^3/uL (130-400); RBC 4.28 10^6/uL (3.93-5.22); RDW-SD 42.2 fL; WBC 9.77 10^3/uL (4.4-10.8)
== END 2024-01-24 05:54 | disposition home or self-care (01) ==
LOC: LBO 05:53
PROVIDERS: PCP Nurse Practitioner Family; Visit Provider Internal Medicine Hematology & Oncology
DX: D69.6 Thrombocytopenia, unspecified (principal)
CPT/HCPCS: 36415; 85025

== ENCOUNTER 2024-02-07 05:36 | Outpatient (CLI) | payer MEDICAID, SELFPAY ==
[2024-02-07 13:42] LABS: Abs Immature Grans 0.05 10^3/uL (0.0-0.06); Absolute Basophil Count 0.02 10^3/uL (0.0-0.2); Absolute Eosinophil Count 0.05 10^3/uL (0.0-0.7); Absolute Lymphocyte Count 1.76 10^3/uL (1.2-3.4); Absolute Monocyte Count 0.43 10^3/uL (0.1-0.8); Absolute Neutrophil Count 6.98 10^3/uL (1.2-6.7); Basophils % 0.2; Eosinophils % 0.5; HCT 37.1 % (36.0-46.0); HGB 12.3 g/dL (11.2-15.7); Immature Grans % 0.5; Lymphocytes % 18.9; MCHC 33.2 % (32.0-36.0); MCV 88 fL (80-95); MPV 12.8 fL (8.0-11.0); Monocytes % 4.6; Neutrophils % 75.3; RBC 4.24 10^6/uL (3.93-5.22); RDW 13.1 % (11.7-14.6); RDW-SD 41.3 fL; WBC 9.29 10^3/uL (4.4-10.8)
[2024-02-07 13:51] LABS: Glucose,1 Hr (Glucola) 104 mg/dL (80-140)
[2024-02-07 13:59] LABS: Diff Comment PLT Morph Reviewed; Platelet Count 89 10^3/uL (130-400); RBC Morphology Normal
[2024-02-07 14:26] LABS: ALT 21 U/L (14-59); AST 13 U/L (15-37); Albumin 2.8 g/dL (3.4-5.0); Alkaline Phosphatase 92 U/L (46-116); Anion Gap 9.3 mmol/L (3-11); BUN 10 mg/dL (7-18); Bilirubin, Total 0.3 mg/dL (0.2-1.0); CO2 24.7 mmol/L (21.0-32.0); CREATININE 0.6 mg/dL (0.55-1.02); Calcium 8.4 mg/dL (8.5-10.1); Chloride 103 mmol/L (98-107); Estimated GFR 125.31 (mL/min/1.73m2); Glucose 104 mg/dL (74-106); Potassium 3.5 mmol/L (3.5-5.1); Sodium 137 mmol/L (136-145)
== END 2024-02-07 05:37 | disposition home or self-care (01) ==
LOC: LBO 05:37
PROVIDERS: Advanced Practice Midwife; PCP Nurse Practitioner Family; Visit Provider Advanced Practice Midwife
DX: Z34.93 Encounter for supervision of normal pregnancy, unspecified, third trimester (principal); D69.6 Thrombocytopenia, unspecified; Z3A.28 28 weeks gestation of pregnancy
CPT/HCPCS: 36415; 80053; 82950; 85025

== ENCOUNTER 2024-02-21 04:50 | Outpatient (CLI) | payer MEDICAID, SELFPAY ==
[2024-02-21 14:06] LABS: HCT 35.2 % (36.0-46.0); HGB 11.4 g/dL (11.2-15.7); MCH 28.2 pg (27.0-33.0); MCHC 32.4 % (32.0-36.0); MCV 87 fL (80-95); MPV 12.2 fL (8.0-11.0); Platelet Count 122 10^3/uL (130-400); RBC 4.04 10^6/uL (3.93-5.22); RDW-SD 41.1 fL; WBC 9.66 10^3/uL (4.4-10.8)
== END 2024-02-21 04:51 | disposition home or self-care (01) ==
LOC: LBO 04:50
PROVIDERS: PCP Nurse Practitioner Family; Visit Provider Advanced Practice Midwife
DX: D69.6 Thrombocytopenia, unspecified (principal); Z34.93 Encounter for supervision of normal pregnancy, unspecified, third trimester
CPT/HCPCS: 36415; 85027

== ENCOUNTER 2024-03-01 05:20 | Outpatient (CLI) | payer MEDICAID, SELFPAY ==
[2024-03-01 10:48] LABS: Abs Immature Grans 0.04 10^3/uL (0.0-0.06); Absolute Basophil Count 0.02 10^3/uL (0.0-0.2); Absolute Eosinophil Count 0.05 10^3/uL (0.0-0.7); Absolute Lymphocyte Count 1.97 10^3/uL (1.2-3.4); Absolute Monocyte Count 0.59 10^3/uL (0.1-0.8); Absolute Neutrophil Count 5.79 10^3/uL (1.2-6.7); Basophils % 0.2 %; Eosinophils % 0.6 %; HCT 35.2 % (36.0-46.0); HGB 11.5 g/dL (11.2-15.7); Immature Grans % 0.5 %; Lymphocytes % 23.3 %; MCH 28.3 pg (27.0-33.0); MCHC 32.7 % (32.0-36.0); MCV 87 fL (80-95); MPV 12.5 fL (8.0-11.0); Neutrophils % 68.4 %; Platelet Count 107 10^3/uL (130-400); RBC 4.07 10^6/uL (3.93-5.22); RDW-SD 40.8 fL; WBC 8.46 10^3/uL (4.4-10.8)
== END 2024-03-01 05:21 | disposition home or self-care (01) ==
LOC: LBO 05:20
PROVIDERS: PCP Nurse Practitioner Family; Visit Provider Internal Medicine Hematology & Oncology
DX: D69.6 Thrombocytopenia, unspecified (principal)
CPT/HCPCS: 36415; 85025

== ENCOUNTER 2024-03-07 01:34 | Outpatient (CLI) | payer MEDICAID, SELFPAY ==
[2024-03-07 11:15] LABS: Abs Immature Grans 0.05 10^3/uL (0.0-0.06); Absolute Basophil Count 0.02 10^3/uL (0.0-0.2); Absolute Eosinophil Count 0.04 10^3/uL (0.0-0.7); Absolute Lymphocyte Count 1.95 10^3/uL (1.2-3.4); Absolute Monocyte Count 0.56 10^3/uL (0.1-0.8); Absolute Neutrophil Count 6.91 10^3/uL (1.2-6.7); Basophils % 0.2 %; Eosinophils % 0.4 %; HCT 37.2 % (36.0-46.0); HGB 12.1 g/dL (11.2-15.7); Immature Grans % 0.5 %; Lymphocytes % 20.5 %; MCH 28.2 pg (27.0-33.0); MCHC 32.5 % (32.0-36.0); MCV 87 fL (80-95); MPV 12.7 fL (8.0-11.0); Monocytes % 5.9 %; Neutrophils % 72.5 %; Platelet Count 116 10^3/uL (130-400); RBC 4.29 10^6/uL (3.93-5.22); RDW-SD 40.4 fL; WBC 9.53 10^3/uL (4.4-10.8)
== END 2024-03-07 01:35 | disposition home or self-care (01) ==
PROVIDERS: PCP Nurse Practitioner Family; Visit Provider Obstetrics & Gynecology
DX: D69.6 Thrombocytopenia, unspecified (principal)
CPT/HCPCS: 36415; 85025

== ENCOUNTER 2024-03-13 04:44 | Outpatient (CLI) | payer MEDICAID, SELFPAY ==
[2024-03-13 11:40] LABS: Abs Immature Grans 0.06 10^3/uL (0.0-0.06); Absolute Basophil Count 0.02 10^3/uL (0.0-0.2); Absolute Eosinophil Count 0.05 10^3/uL (0.0-0.7); Absolute Lymphocyte Count 2.04 10^3/uL (1.2-3.4); Absolute Monocyte Count 0.56 10^3/uL (0.1-0.8); Absolute Neutrophil Count 6.06 10^3/uL (1.2-6.7); Basophils % 0.2 %; Eosinophils % 0.6 %; HCT 37.5 % (36.0-46.0); Immature Grans % 0.7 %; Lymphocytes % 23.2 %; MCH 27.9 pg (27.0-33.0); MCV 87 fL (80-95); MPV 12.8 fL (8.0-11.0); Monocytes % 6.4 %; Neutrophils % 68.9 %; Platelet Count 122 10^3/uL (130-400); RDW 13.1 % (11.7-14.6); RDW-SD 41.5 fL; WBC 8.79 10^3/uL (4.4-10.8)
== END 2024-03-13 04:45 | disposition home or self-care (01) ==
LOC: LBO 04:44
PROVIDERS: Obstetrics & Gynecology; PCP Nurse Practitioner Family; Visit Provider Advanced Practice Midwife
DX: Z34.93 Encounter for supervision of normal pregnancy, unspecified, third trimester (principal); D69.6 Thrombocytopenia, unspecified; Z3A.32 32 weeks gestation of pregnancy
CPT/HCPCS: 36415; 85025

== ENCOUNTER 2024-03-20 05:58 | Outpatient (CLI) | payer MEDICAID, SELFPAY ==
[2024-03-20 10:28] LABS: Abs Immature Grans 0.04 10^3/uL (0.0-0.06); Absolute Basophil Count 0.02 10^3/uL (0.0-0.2); Absolute Eosinophil Count 0.04 10^3/uL (0.0-0.7); Absolute Lymphocyte Count 1.93 10^3/uL (1.2-3.4); Absolute Monocyte Count 0.37 10^3/uL (0.1-0.8); Absolute Neutrophil Count 5.66 10^3/uL (1.2-6.7); Basophils % 0.2 %; Eosinophils % 0.5 %; HCT 36.3 % (36.0-46.0); Immature Grans % 0.5 %; Lymphocytes % 23.9 %; MCH 28.5 pg (27.0-33.0); MCHC 33.1 % (32.0-36.0); MCV 86 fL (80-95); MPV 12.5 fL (8.0-11.0); Monocytes % 4.6 %; Neutrophils % 70.3 %; RBC 4.21 10^6/uL (3.93-5.22); RDW 13.2 % (11.7-14.6); WBC 8.06 10^3/uL (4.4-10.8)
[2024-03-20 10:48] LABS: Diff Comment Diff Reviewed; Platelet Count 97 10^3/uL (130-400); RBC Morphology Normal
== END 2024-03-20 05:59 | disposition home or self-care (01) ==
LOC: LBO 05:58
PROVIDERS: Obstetrics & Gynecology; PCP Nurse Practitioner Family; Visit Provider Advanced Practice Midwife
DX: Z34.93 Encounter for supervision of normal pregnancy, unspecified, third trimester (principal); D69.6 Thrombocytopenia, unspecified; Z3A.34 34 weeks gestation of pregnancy
CPT/HCPCS: 36415; 85025

== ENCOUNTER 2024-03-29 04:44 | Outpatient (CLI) | payer MEDICAID, SELFPAY ==
[2024-03-29 11:15] LABS: HCT 36.6 % (36.0-46.0); HGB 11.6 g/dL (11.2-15.7); MCH 27.8 pg (27.0-33.0); MCHC 31.7 % (32.0-36.0); MCV 88 fL (80-95); MPV 12.9 fL (8.0-11.0); Platelet Count 111 10^3/uL (130-400); RBC 4.18 10^6/uL (3.93-5.22); RDW 13.1 % (11.7-14.6); RDW-SD 41.8 fL; WBC 8.51 10^3/uL (4.4-10.8)
== END 2024-03-29 04:45 | disposition home or self-care (01) ==
LOC: LBO 04:44
PROVIDERS: Advanced Practice Midwife; PCP Nurse Practitioner Family; Visit Provider Advanced Practice Midwife
DX: Z34.93 Encounter for supervision of normal pregnancy, unspecified, third trimester (principal); Z3A.33 33 weeks gestation of pregnancy
CPT/HCPCS: 36415; 85027

== ENCOUNTER 2024-04-03 03:03 | Outpatient (CLI) | payer MEDICAID, SELFPAY ==
[2024-04-03 09:07] LABS: Abs Immature Grans 0.04 10^3/uL (0.0-0.06); Absolute Basophil Count 0.03 10^3/uL (0.0-0.2); Absolute Eosinophil Count 0.06 10^3/uL (0.0-0.7); Absolute Lymphocyte Count 1.97 10^3/uL (1.2-3.4); Absolute Monocyte Count 0.47 10^3/uL (0.1-0.8); Absolute Neutrophil Count 5.92 10^3/uL (1.2-6.7); Basophils % 0.4 %; Eosinophils % 0.7 %; HCT 37.5 % (36.0-46.0); HGB 12.1 g/dL (11.2-15.7); Immature Grans % 0.5 %; Lymphocytes % 23.2 %; MCH 27.4 pg (27.0-33.0); MCHC 32.3 % (32.0-36.0); MCV 85 fL (80-95); Monocytes % 5.5 %; Neutrophils % 69.7 %; Platelet Count 121 10^3/uL (130-400); RBC 4.42 10^6/uL (3.93-5.22); RDW 13.2 % (11.7-14.6); RDW-SD 40.9 fL; WBC 8.49 10^3/uL (4.4-10.8)
== END 2024-04-03 03:04 | disposition home or self-care (01) ==
PROVIDERS: PCP Nurse Practitioner Family; Visit Provider Internal Medicine Hematology & Oncology
DX: D69.6 Thrombocytopenia, unspecified (principal)
CPT/HCPCS: 36415; 85025

== ENCOUNTER 2024-04-03 09:45 | Outpatient (REF) | payer MEDICAID, SELFPAY | END 2024-04-03 09:46 | disposition home or self-care (01) | LOC: LBN 09:45 | PROVIDERS: PCP Nurse Practitioner Family; Visit Provider Advanced Practice Midwife | DX: Z34.93 Encounter for supervision of normal pregnancy, unspecified, third trimester (principal); Z36.85 Encounter for antenatal screening for Streptococcus B; Z3A.36 36 weeks gestation of pregnancy | CPT/HCPCS: 87081 ==

== ENCOUNTER 2024-04-10 04:02 | Outpatient (CLI) | payer MEDICAID, SELFPAY ==
[2024-04-10 10:58] LABS: HCT 36.7 % (36.0-46.0); HGB 11.8 g/dL (11.2-15.7); MCH 27.4 pg (27.0-33.0); MCHC 32.2 % (32.0-36.0); MCV 85 fL (80-95); MPV 12.6 fL (8.0-11.0); Platelet Count 113 10^3/uL (130-400); RDW 13.5 % (11.7-14.6); RDW-SD 41.6 fL; WBC 7.34 10^3/uL (4.4-10.8)
== END 2024-04-10 04:03 | disposition home or self-care (01) ==
LOC: LBO 04:02
PROVIDERS: PCP Nurse Practitioner Family; Visit Provider Advanced Practice Midwife
DX: D69.6 Thrombocytopenia, unspecified (principal); Z34.90 Encounter for supervision of normal pregnancy, unspecified, unspecified trimester
CPT/HCPCS: 36415; 85027

== ENCOUNTER 2024-04-17 03:17 | Outpatient (CLI) | payer MEDICAID, SELFPAY ==
[2024-04-17 15:18] LABS: HCT 36.1 % (36.0-46.0); HGB 11.6 g/dL (11.2-15.7); MCHC 32.1 % (32.0-36.0); MCV 84 fL (80-95); Platelet Count 139 10^3/uL (130-400); RDW 13.5 % (11.7-14.6); RDW-SD 41.3 fL
== END 2024-04-17 03:18 | disposition home or self-care (01) ==
LOC: LBO 03:17
PROVIDERS: PCP Nurse Practitioner Family; Visit Provider Advanced Practice Midwife
DX: Z34.93 Encounter for supervision of normal pregnancy, unspecified, third trimester (principal); Z3A.38 38 weeks gestation of pregnancy
CPT/HCPCS: 36415; 85027

== ENCOUNTER 2024-04-19 08:10 | Outpatient (CLI) | payer MEDICAID, SELFPAY ==
[2024-04-19 13:14] VITALS: BP 112/63; PULSE 93
[2024-04-19 13:16] VITALS: BP 112/63; PULSE 93; TEMP 36.6
--- NOTE | 2024-04-19 14:09 | W.OBNST ---
Date of service: 04/19/24 Time of Service: 14:09 NST Evaluation Reason for NST Reasons for Nonstress Test: OTHER, SEE COMMENT Reason for NST Other: Question positioning Gestational Age Gestational Age in Weeks and Days: 38 Weeks and 3Days Test and Monitor Explained Test/Monitor Explained: Test Explained, Monitor Explained and Patient Verbalized Understanding Vital Signs Blood Pressure: 112/63 Pulse: 93 Temperature: 97.9 F Urine Results Urine Protein: Negative Urine Ketones: Positive Urine Glucose: Negative Urine Blood: Negative NST Information Date on Monitor: 04/19/24 Time on Monitor: 13:12 Date off Monitor: 04/19/24 Time off Monitor: 13:51 Total Time on Monitor: 39 NST Interventions: PO Hydration, Meal Given and Reposition Patient Contraction Frequency: rare NST Evaluation Patient States Movement: Present FHR Baseline: 135 Variability: Moderate 6-25 bpm Accelerations: 15x15 Decelerations: None NST Results: Reactive Note Ultrasound Done: Presentation Presentation Results: cephalic, ROP Coding for Presentation w/NST: Completed Exam. NST Note NST Reviewed and Verified by: Ada Valle
[2024-04-19 14:10] VITALS: BP 112/63; PULSE 93; TEMP 36.6
== END 2024-04-19 14:00 ==
LOC: BCD 08:10 → OBS 13:03
PROVIDERS: PCP Nurse Practitioner Family; Visit Provider Advanced Practice Midwife
DX: Z34.93 Encounter for supervision of normal pregnancy, unspecified, third trimester (principal); Z36.89 Encounter for other specified antenatal screening; Z3A.38 38 weeks gestation of pregnancy
CPT/HCPCS: 76816; 59025

== ENCOUNTER 2024-04-21 05:29 | Inpatient (IN) | payer MEDICAID, SELFPAY ==
[2024-04-21] VITALS (17 sets, daily range): BP systolic 104–121; BP diastolic 55–70; PULSE 74–93; RESP 12–16; TEMP 36.1–37; O2SAT 96–98
--- NOTE | 2024-04-21 06:07 | HPE_ITS ---
Date of service: 04/21/24 Time of Service: 06:07 Assessment and Plan Assessment and plan (1) PROM with onset of labor within 24 hours of rupture: Status: Acute Assessment and plan: A: 29 yo , 38+5 wks, SROM @ 0240 ITP during , most recent plts 139 Spontaneous early labor, GBS negative No increased risk for SD, increased risk for PPH d/t ITP Category 1 tracing P: Admit to BC, CBC and T&S, establish IV access when in labor Expectant management, anticipate Notify anesthesia and OB if plts <120 Dr. Marmolejo available for consult Qualifiers: PROM gestational age: full term Qualified Code(s): O42.02 - Full-term premature rupture of membranes, onset of labor within 24 hours of rupture (2) Thrombocytopenia: Status: Chronic Assessment and plan: [facility] MFM and hematology consults during pergnancy Followed pt with weekly plt counts which had a maximiliano of 52 in 2nd trimester Most recent plts 4 days ago @ 139 Admission CBC pending OB-HPI Labor/Delivery History of Present Illness Reason for Visit: Rule out labor Chief Complaint: Suspected Rupture of Membranes , Associated Signs and Symptoms of Suspected ROM: Gush of clear fluid at 0240, contractions began shortly thereafter, has seen some pink tinged fluid, no nausea or vomiting. ISAAC Calculator Estimated Delivery Date Method Current WG Current Estimate 04/30/24 Ultrasound #1 38w 5d Other Estimates 04/16/24 LMP (Uncertain) 40w 5d History of Present Expected Delivery Route/Plan -CNM; alternating w/MD visits, delivery possibly @ [facility] if plts low F [facility] in coordination with plt levels and if steroids are used Doesn't want to know gender prior to GBS negative Specific Issues/Plan 1. BMI 34 - early GTT 97 2. Hx of thrombocytopenia in -platelets 10/20- 2a. referred to hematology; plan to notify anesthesia at 36 wks 2b. appt. with Hem at [facility] 12/08: plts 77, recheck on 12/20 plts 70; 01/09 plts 52 2c. Check plts monthly (Wednesday of each month) @ [facility], see MFM consult from 12/08 & 01/02 2d. Plan delivery at [facility], plt transfusion in labor planned, next appt @ [facility] Heme/Onc 03/01/24 2e. Anesthesia messaged to review pt record/MFM notes 02/07/24 2f. Weekly CBC per Dr. Joy, communicated with [facility], that they are now ordered weekly for f/up. KH 3. Declines serum genetic testing options 4. Tandem nursing. 5. Suspicion of cleft lip/palate @ anatomy survey, pt accepts level 2 @ [facility] 5a. US at [facility] no cleft, normal 3D face US 6. Planning IOL per MFM; see consult notes 01/03/24, IOL at 39-40 wks, booked for 04/24/24 Assessment: History Reviewed & Current Review of Systems Narrative: ROS completed and noncontributory other than HPI PFSH All Active Problems (Updated 04/21/24 @ 06:14 by Ada Valle) PROM with onset of labor within 24 hours of rupture (Acute) Thrombocytopenia (Chronic) (Acute) BMI 31.0-31.9,adult (Chronic) Medical History (Updated 04/21/24 @ 06:14 by Ada Valle) Abnormal ultrasound suspicion of cleft lip/palate, nml level 2 at [facility] BRCA negative Delayed menses Family history of BRCA gene mutation Penicillin allergy (12/10/16) 05/29/21: low risk for actual PCN allergy, will offer allergy testing at [facility] Family history of breast cancer History of lower leg fracture Surgical History [place] teeth extracted Family History (Updated 10/20/23 @ 09:56 by Astrid Francisco CNM) Mother Asthma Sister Breast cancer pre cancerous cells, unsure if BRCA testing was done. age 30 Father Heart disease [place] 10/02 at age 51 Stroke age 50, history high iron Social History Smoking/Tobacco Use Status: Never Smoking risk assessment performed?: Yes Alcohol Intake: former Drug use: Never Substance use type: does not use Housing: house Seatbelt use: always Do you feel safe at home: Yes Do you feel safe in your relationship?: Yes Female Reproductive History Menstrual Age of Menarche: 11 Duration of menses: 6-7 days control method: none History History 5 Para 4 Hx # Term Pregnancies 4 Multiple births 0 Hx # Pregnancies 0 Ectopic pregnancies 0 AB induced 0 Hx Number of Living Children 4 AB spontaneous 1 Past Pregnancies Del. Date GA/Weeks # Preg Succ Route Wgt Sex Labor Lgth Anesth esia Location Prov Complic 12/31/16 40 No vaginal 7 lb 0.8 oz Male 7 hrs local noemy [facility] 07/07/18 8 06/09/19 39 No vaginal 6 lb 13 oz Female 6 hours local Primitivo Valle CNM 12/08/21 40 No vaginal 7 lb Female 3 KSunolivia cruz CNM 03/27/23 40 No Yes vaginal 7 lb 4.05 oz Male 5hrs 4min regional [facility] [place] Delivery Date: 12/31/16 Last Updated by: Astrid Francisco CNM pt thinks she had 2nd degree lac. Group B strep. Александр Delivery Date: 06/09/19 Last Updated by: Astrid Francisco CNM exact weight unknown, baby weighed 6lbs 13 oz on day after delivery per paperwork. Erin Lara Delivery Date: 12/08/21 Last Updated by: Astrid Francisco CNM prodromal labor and then precipitous. Mellisa Harris Delivery Date: 03/27/23 Last Updated by: SEBASTIÁN Pradoasya Meds Allergies and Home Medications Allergies Allergy/AdvReac Type Severity Reaction Status Date / Time amoxicillin AdvReac Unknown DIARRHEA Verified 04/17/24 15:12 Home Medications ?Medication ?Instructions ?Recorded ?Confirmed ?Type vit no.95-ferrous 1 tab PO DAILY ##90 09/21/16 04/17/24 History fumarate 28 mg-folic acid 800 mcg tablet () Exam Physical Exam Vital signs: Temp Pulse Resp BP Pulse Ox 98.0 F 89 16 113/70 96 04/21/24 05:39 04/21/24 05:41 04/21/24 05:39 04/21/24 05:39 04/21/24 05:41 Vital Signs Reviewed: Yes Constitutional Constitutional: no acute distress, average body habitus and cooperative Detailed Labor and Delivery Exam Dilation: 5 Effacement (%): 80 station: -2 Cervix position: mid Consistency: soft Amniotic Membrane Status: Ruptured (clear fluid draining) Rupture Method: Spontaneous Amniotic Fluid: Clear Pooling: Positive Nitrazine: Positive Ferning: Present Contraction Frequency(min): irreg Contraction Intensity: Mild Fetus A Heart Rate Baseline: 145 Monitor Accelerations: 15 X 15 Monitor Decelerations: None Variability: Moderate (6-25 BPM) Categories: Category I Est. Weight: 7 lb 0.877 oz Est. Weight: 3200 gms Date of Membrane Rupture: 04/21/24 Time of Membrane Rupture: 03:00 HEENT Exam HEENT Exam: Normal Neck Exam Neck Exam: Normal Chest/Brest/Axilla Exam Chest Exam: Normal Breast Exam Breast Exam: Not Done Respiratory Exam Respiratory Exam: Normal Cardiovascular Exam Cardiovascular Exam: Normal Abdominal Exam Abdominal Exam: Normal (Gravid, soft, nontender) Rectal Exam Rectal Exam: Normal Exam Exam: Normal Extremities Exam Extremities Exam: Normal Back/Spine/Pelvis Exam Back Exam: Normal Pelvis Adequate: Yes (proven to 7'4) Skin Exam Skin Exam: Normal Neurological Exam Neurological Exam: Normal Psychiatric Exam Psychiatric Exam: Normal Results Results Group Beta Strep: Negative Blood Type: O+ Rubella Status: Immune Varicella Immunity: Immune Risk Assessment Risk for Shoulder Dystocia Historical/Initial OB: POSITIVE FOR: Pre- BMI>30; NEGATIVE FOR: Pelvic Abnormality, Previous Shoulder Dystocia or Previous Macrosomia 36 Weeks: NEGATIVE FOR: Current Gestational DM, EFW>4500gms or Maternal Weight Gain>40lbs Increased Risk?: Yes Date/Initial: 09/09/22 Delivery Plan @ 36wks: Risk for Pre-Eclampsia Daily Dose ASA Indicated: No Date Initiated/Initials: not indicated. Yes, if 2 or more: POSITIVE FOR: BMI>30 Risk for Post- Hemorrhage Initial: NEGATIVE FOR: Multiple Gestation, Previous PPH, Known Clotting Deficiency, Grand Multiparity or Anticoagulation 36 Weeks: POSITIVE FOR: Low platelets(thrombocytopenia); NEGATIVE FOR: Anemia, hgb<10, Gestational HTN or Pre-E, Polyhydraminios or EFW>4500gms At Risk?: Yes Counseled re: Active Management: Yes Risks Reviewed Risks Reviewed Upon Admission: Yes
[2024-04-21 06:55] LABS: HCT 36.7 % (36.0-46.0); HGB 11.8 g/dL (11.2-15.7); MCH 26.9 pg (27.0-33.0); MCHC 32.2 % (32.0-36.0); MCV 84 fL (80-95); MPV 12.7 fL (8.0-11.0); Platelet Count 152 10^3/uL (130-400); RBC 4.38 10^6/uL (3.93-5.22); RDW 13.5 % (11.7-14.6); WBC 10.02 10^3/uL (4.4-10.8)
--- NOTE | 2024-04-21 14:51 | W.PM.OBNL1 ---
Date of service: 04/21/24 Time of Service: 14:51 Pelvic Exam Dilation: 6 Effacement (%): 100 station: -2 Cervix Position: mid Consistency: soft Contractions Monitor Mode: Palpation Contraction Frequency(min): q10-15 Intensity: Mild/Moderate Fetus A Monitor: Doppler Heart Rate Baseline: 140 FHR Rhythm: Regular Characteristics: Normal Accelerations: Present Decelerations: None Amniotic Membrane Status: Ruptured Assessment and Plan Assessment and plan (1) PROM with onset of labor within 24 hours of rupture: Status: Acute Assessment and plan: A: early active labor in multipara reassuring FHT per doppler Plts are WNL @ 152 P: Will reassess for pitocin augmentation in 2 hrs Unmedicated is planned Anticipate Qualifiers: PROM gestational age: full term Qualified Code(s): O42.02 - Full-term premature rupture of membranes, onset of labor within 24 hours of rupture Objective Vital Signs Reviewed: Yes Objective Narrative Objective Narrative: Discussed pitocin augmentation with pt and There has been cervical change and contractions are intensifying Afebrile, normotensive, pt was able to nap earlier Tolerating PO intake well Admission plts 152 Pt appears more uncomfortable, cheeks flushed, having difficulty moving in bed Subjective Interval history since last seen: Pt has rested, eaten lunch, ambulated in hallway. Contractions are more painful but far apart which pt finds confusing as in the past her labors start right up. Reassurances offered that this is a variation of normal especially after having several children already.
--- NOTE | 2024-04-21 16:37 | W.PM.OBNL1 ---
Date of service: 04/21/24 Time of Service: 16:37 Informed Consent Informed Consent: Augmentation of Labor and Risk,Benefits,Alternatives Discussed Pelvic Exam Dilation: 7 Effacement (%): 100 station: -2 Cervix Position: mid Consistency: soft Contractions Monitor Mode: External Contraction Frequency(min): 10-20 Intensity: Moderate Fetus A Monitor: External (US) Heart Rate Baseline: 145 Variability: Moderate (6-25 BPM) Categories: Category I Decelerations: None Amniotic Membrane Status: Ruptured Assessment and Plan Assessment and plan (1) PROM with onset of labor within 24 hours of rupture: Status: Acute Assessment and plan: A: Slow progress in multipara, inadequate contraction pattern category 1 tracing P: Discussed options with pt, R&B of pit augmentation reviewed Will begin pitocin augmentation Dr. Marmolejo aware of pt status. anticipated Qualifiers: PROM gestational age: full term Qualified Code(s): O42.02 - Full-term premature rupture of membranes, onset of labor within 24 hours of rupture
[2024-04-21] MEDS: Normal Saline Flush 10 ML SYR IVP ×2 (16:47→23:24)
[2024-04-21] MEDS: Lactated Ringers 1,000 ML 125 ML IV (17:04)
[2024-04-21] MEDS: Oxytocin/Normal Saline 30 UNIT/500 ML BAG 2 UNITS IV (17:04)
[2024-04-21] MEDS: oxyCODONE 5 MG TAB PO (19:05)
--- NOTE | 2024-04-21 19:05 | W.OBDELIVERY ---
Date of service: 04/21/24 Time of Service: 19:05 OB Labor/ Delivery Information Baby A Delivery Delivery Method: Spontaneaous Presentation: Cephalic Cephalic Position: Vertex Vertex Position: Right Occipital Anterior Breech Position: N/A Cord Description-Baby A: 3 Vessels Amniotic Fluid: Clear Estimated Blood Loss: 200 QBL Delivery Outcome: Liveborn Transferred: Remains with Mother Note: Pt progressed to 7/100% from admission exam of 5/60% over 12 hours, consent obtained for pitocin augmentation which began @ 1704 and uterine contractions increased in effectiveness immediately, EFM tracing remained category 1. With pitocin infusing @ 4u/min and pt using nitrous to good effect she quickly dilated to full dilation with rapid descent. 2nd stage huddle completed then over intact perineum thereafter, shoulders delivered with ease and vigorous female infant to mother's arms immediately. Pitocin bolus begun, cord clamped and cut by CNM at parent request, cord blood collected, Hilario placenta intact with 3VC, fundus firm below umbilicus and minimal rubra was observed. Vulva and vagina inspected and found intact without laceration, strong family bonding observed, apgars 9/9, weight 3380 gms. Providers Nurse Security Alarm Technician: Ada Valle Nurse: Surendra Mederos Nurse: Andres Perkins Labor/Delivery Information Number of Babies in Womb: 1 Steroids Given: None Reason Steroids Not Administered: N/A Group Beta Strep: Negative Rubella Status: Immune Blood Type: O+ Varicella Immunity: Immune Medication in Delivery: pitocin Shoulder Dystocia: No Stages of Labor Onset of Labor Date: 04/21/24 Onset of Labor Time: 03:00 Complete Dilatation Date: 04/21/24 Complete Dilatation Time: 18:22 Labor - Stage 1 Duration: 15 hours and 22 minutes ROM Baby A: 04/21/24 ROM Baby A: 02:40 ROM Total Time- Baby A: [id number] Delivery Date-Baby A: 04/21/24 Infant Delivery Time-Baby A: 18:28 Labor Stage 2 Duration: 6 minutes Placenta Delivery Date-Baby A: 04/21/24 Placenta Delivery Time-Baby A: 18:36 Labor-Stage 3 Duration: 8 minutes Total Length of Labor-Baby A: 15 hours and 28 minutes Placenta Cultured: No Placenta Status: Delivered Baby A Gender: Female Gestational Status: Early Term (37-38.6 wks) Gestational Age in Weeks/Days: 38 Weeks and 5 Days weight: 7 lb 7.226 oz Weight Comment: 3380 gms Length-Baby A: 21.26 in Score-1 Minute Interval(Baby A) Heart Rate-1 minute: 100 BPM or Greater Respiratory Effort- 1 minute: Spontaneous/Strong Cry Muscle Tone-1 minute: Active Movement Reflex Response-1 minute: Prompt Response Color-1 minute: Bluish Hands or Feet Total Score-1 minute: 9 Score-5 Minute Interval(Baby A) Heart Rate- 5 minute: 100 BPM or Greater Respiratory Effort-5 minute: Spontaneous/Strong Cry Muscle Tone-5 minute: Active Movement Reflex Response-5 minute: Prompt Response Color-5 minute: Bluish Hands or Feet Total Score- 5 minute: 9
[2024-04-21] MEDS: Ibuprofen 600 MG TAB PO (21:33)
[2024-04-21] MEDS: Acetaminophen 325 MG TAB 650 MG PO (21:33)
[2024-04-22] MEDS: Acetaminophen 325 MG TAB 650 MG PO ×6 (02:32→22:43)
[2024-04-22] MEDS: oxyCODONE 5 MG TAB PO ×2 (02:32→06:25)
[2024-04-22 05:07] VITALS: BP 99/56; PULSE 84
[2024-04-22] MEDS: Ibuprofen 600 MG TAB PO ×3 (06:25→18:30)
[2024-04-22 07:37] VITALS: BP 108/66; PULSE 69; RESP 20; TEMP 36.4; O2SAT 98
--- NOTE | 2024-04-22 07:45 | OBPPV_ITS ---
Date of service: 04/22/24 Time of Service: 07:45 Assessment and Plan Assessment and plan (1) Term delivered: Status: Acute Assessment and plan: A: PPD#1, nml recovery going well, satisfied with experience P: Pt plans discharge tomorrow Paragard IUD for BCM at 6-8 wks Will check plts at 2 wk appt Routine PP care and support Subjective Subjective Patient comments: No complaints, Pain well controlled (using oxycodone 5 mg prn with tylenol and ibuprofen for strong afterpains), Tolerating diet and Flatus present Patient's Mood: happy baby status: Doing well, Nursing well, Rooming in and Strong Bonding Observed [place] feeding status: Exclusively breast feeding Exam Physical Exam Vital signs: Temp Pulse Resp BP Pulse Ox 97.0 F L 69 16 108/66 98 04/21/24 23:01 04/22/24 07:37 04/21/24 23:01 04/22/24 07:37 04/21/24 18:24 Vital Signs Reviewed: Yes Constitutional Constitutional: no acute distress and average body habitus HEENT Exam HEENT Exam: Normal Neck Exam Neck Exam: Normal Breast Exam Bilateral: Breast Exam: Normal and Soft Nipple Exam: Normal and Uninjured Respiratory Exam Respiratory Exam: Normal Cardiovascular Exam Cardiovascular Exam: Normal Abdominal Exam Abdomen: Other (soft, nontender) Fundal Exam Fundus: Below Umbilicus and Firm Exam Perineum: Intact Extremities Exam Extremity Exam: Normal, Full ROM and Warm to Touch Back/Spine/Pelvis Exam Back Exam: Normal Skin Exam Skin Exam: Normal Neurological Exam Neurological Exam: Normal Psychiatric Exam Psychiatric Exam: Normal
[2024-04-22 22:43] VITALS: BP 108/63; PULSE 74; RESP 16; TEMP 36.5
[2024-04-23] MEDS: Ibuprofen 600 MG TAB PO ×2 (04:14→14:24)
[2024-04-23] MEDS: Acetaminophen 325 MG TAB 650 MG PO ×2 (08:32→14:26)
[2024-04-23 08:36] VITALS: BP 103/65; PULSE 86; RESP 20; TEMP 36.5; O2SAT 98
--- NOTE | 2024-04-23 09:09 | W.PM.OBPNV1 ---
Date of service: 04/23/24 Time of Service: 09:09 Assessment and Plan Assessment and plan (1) Term delivered: Status: Acute Assessment and plan: A: PPD#2, nml recovery going well, satisfied with experience P: Discharge today Paragard IUD for BCM at 6-8 wks Will check plts at 2 wk appt F/up at 2 and 6 wks. Subjective Subjective Patient comments: No complaints, Pain well controlled, Tolerating diet and Bowel Movement Patient's Mood: tired today, has not needed oxycodone for pain since yesterday. [place] baby status: Doing well, Nursing well, Rooming in and Strong Bonding Observed [place] feeding status: Exclusively breast feeding Exam Physical Exam Vital signs: Temp Pulse Resp BP Pulse Ox 97.7 F 86 20 103/65 98 04/23/24 08:36 04/23/24 08:36 04/23/24 08:36 04/23/24 08:36 04/23/24 08:36 Vital Signs Reviewed: Yes Constitutional Constitutional: no acute distress and average body habitus HEENT Exam HEENT Exam: Normal Neck Exam Neck Exam: Normal Breast Exam Bilateral: Breast Exam: Normal and Soft Respiratory Exam Respiratory Exam: Normal Cardiovascular Exam Cardiovascular Exam: Normal Abdominal Exam Abdomen: Other (soft, nontender) Fundal Exam Fundus: Below Umbilicus and Firm Rectal Exam Rectal Exam: Normal Exam Perineum: Intact Extremities Exam Extremity Exam: Normal, Full ROM and Warm to Touch Back/Spine/Pelvis Exam Back Exam: Normal Skin Exam Skin Exam: Normal Neurological Exam Neurological Exam: Normal Psychiatric Exam Psychiatric Exam: Normal Results Hemoglobin/Hematocrit: Hgb 11.8 g/dL (11.2-15.7) 04/21/24 06:45 Hct 36.7 % (36.0-46.0) 04/21/24 06:45 Abnormal Lab Findings: Abnormal Labs 04/21/24 06:45 MCH 26.9 L MPV 12.7 H Hemorrrhage Note IV Site Left Forearm: IV Catheter Gauge: 20
--- NOTE | 2024-04-23 09:11 | DSE_ITS ---
Date of service: 04/23/24 Time of Service: 09:11 DS: Diagnosis Discharge Diagnosis (1) Term delivered: Status: Acute Discharge Plan Disposition Patient Disposition: Home Condition: Good Discharge Details Reason For Visit: PROM at term Admit Date/Time: 04/21/24 05:29 Admit Provider: Ada Valle Attending Provider: Ada Valle Primary Care Provider: Elvia Caicedo Hospital Course Hospital Course: on HD#1, nml course, discharge on HD#3 Home Meds and New Rx's Prescriptions: No Action PNV [id number] [] 1 EACH tablet 1 tab PO DAILY MDD 1 Qty: 90 Discharge Instructions Additional Instructions: Please keep your 2 and 6 wk appointments with your evidence specialist, plan for a lab appt at 2 weeks to recheck your platelet count, call for any and all concerns. Stand Alone Forms: BC Instructions, BC Post Vaginal Deliver Activity:: Activity as Tolerated Equipment/Supplies:: No Equipment Needed Diet:: Normal Diet OB:DS Summary Summary Vaginal Delivery Method: Spontaneaous Contraception Discussed Contraception Discussed: Yes Contraceptive Plan: IUD, Infant Gender-Baby A: Female weight: 7 lb 7.226 oz Status at Discharge Functional status at discharge: independent ambulation Overall status at discharge: patient is progressing back to baseline Mental Status: mental status grossly normal Speech and Movement: speech and movement normal Mood: congruent mood Affect: normal affect Quality:SDOH Health Related Social Needs: No Data to Display Exam Physical Exam Vital signs: Temp Pulse Resp BP Pulse Ox 97.7 F 86 20 103/65 98 04/23/24 08:36 04/23/24 08:36 04/23/24 08:36 04/23/24 08:36 04/23/24 08:36 Constitutional Constitutional: no acute distress and average body habitus HEENT Exam HEENT Exam: Normal Neck Exam Neck Exam: Normal Breast Exam Bilateral: Breast Exam: Normal and Soft Respiratory Exam Respiratory Exam: Normal Cardiovascular Exam Cardiovascular Exam: Normal Abdominal Exam Abdomen: Other (soft, nontender) Fundal Exam Fundus: Below Umbilicus and Firm Rectal Exam Rectal Exam: Normal Exam Perineum: Intact Extremities Exam Extremity Exam: Normal, Full ROM and Warm to Touch Back/Spine/Pelvis Exam Back Exam: Normal Skin Exam Skin Exam: Normal Neurological Exam Neurological Exam: Normal Psychiatric Exam Psychiatric Exam: Normal PFSH All Active Problems (Updated 04/22/24 @ 09:28 by Ada Valle) Term delivered (Acute) Thrombocytopenia (Chronic) BMI 31.0-31.9,adult (Chronic) Medical History (Updated 04/22/24 @ 09:28 by Ada Valle) PROM with onset of labor within 24 hours of rupture Abnormal ultrasound suspicion of cleft lip/palate, nml level [address] [facility] [place] BRCA negative Delayed menses Family history of BRCA gene mutation Penicillin allergy (12/10/16) 05/29/21: low risk for actual PCN allergy, will offer allergy testing at [facility] [place] [facility] Family history of breast cancer History of lower leg fracture Surgical History [place] teeth extracted Family History (Updated 10/20/23 @ 09:56 by Astrid Francisco CNM) Mother Asthma Sister Breast cancer pre cancerous cells, unsure if BRCA testing was done. age 30 Father Heart disease [place] 10/02 at age 51 Stroke age 50, history high iron Social History Smoking/Tobacco Use Status: Never Smoking risk assessment performed?: Yes Alcohol Intake: former Drug use: Never Substance use type: does not use Housing: house Seatbelt use: always Do you feel safe at home: Yes Do you feel safe in your relationship?: Yes Female Reproductive History Menstrual Age of Menarche: 11 Duration of menses: 6-7 days control method: none History History 5 Para 4 Hx # Term Pregnancies 4 Multiple births 0 Hx # Pregnancies 0 Ectopic pregnancies 0 AB induced 0 Hx Number of Living Children 4 AB spontaneous 1 Past Pregnancies Del. Date GA/Weeks # Preg Succ Route Wgt Sex Labor Lgth Anesth esia Location Prov Complic 12/31/16 40 No vaginal 7 lb 0.8 oz Male 7 hrs local noemy rodriguez cnm 07/07/18 8 06/09/19 39 No vaginal 6 lb 13 oz Female 6 hours local Primitivo Valle CNM 12/08/21 40 No vaginal 7 lb Female 3 Kim cruz CNM 03/27/23 40 No Yes vaginal 7 lb 4.05 oz Male 5hrs 4min regional [facility] [place] Delivery Date: 12/31/16 Last Updated by: Astrid Francisco CNM pt thinks she had 2nd degree lac. Group B strep. Александр Delivery Date: 06/09/19 Last Updated by: Astrid Francisco CNM exact weight unknown, baby weighed 6lbs 13 oz on day after delivery per paperwork. Erin Lara Delivery Date: 12/08/21 Last Updated by: Astrid Francisco CNM prodromal labor and then precipitous. Mellisa Harris Delivery Date: 03/27/23 Last Updated by: SEBASTIÁN Prado DS: Data Vitals/I&O Vitals and I&O: Vital Signs Temperature 97.7 F 04/23/24 08:36 Temperature Source Oral 04/23/24 08:36 Pulse 86 04/23/24 08:36 Pulse Rhythm Regular 04/22/24 22:45 Respiratory Rate 20 04/23/24 08:36 Blood Pressure 103/65 04/23/24 08:36 Blood Pressure Mean 77 04/23/24 08:36 Pulse Oximetry 98 04/23/24 08:36 Oxygen Delivery Method Room Air 04/21/24 05:39 Oxygen Flow Rate 0 04/21/24 05:39 Intake & Output 04/22/24 04/22/24 04/23/24 11:59 23:59 11:59 Intake Total 11.982 / 11.982 Output Total 700 / 700 Balance -688.018 / -688.018 Intake: IV 11.982 / 11.982 Output: Urine 700 / 700 Other: Comment bladder scan prior to void indicated between 200 and 300 ml
== END 2024-04-23 14:45 | disposition home or self-care (01) | DRG 806 ==
PROVIDERS: Admitting Provider Advanced Practice Midwife; PCP Nurse Practitioner Family; Visit Provider Advanced Practice Midwife
DX: O42.02 Full-term premature rupture of membranes, onset of labor within 24 hours of rupture (principal); D69.3 Immune thrombocytopenic purpura; Z37.0 Single live birth; O99.12 Other diseases of the blood and blood-forming organs and certain disorders involving the immune mechanism complicating childbirth; Z3A.38 38 weeks gestation of pregnancy; Z82.79 Family history of other congenital malformations, deformations and chromosomal abnormalities; Z15.09 Genetic susceptibility to other malignant neoplasm; O75.89 Other specified complications of labor and delivery
CPT/HCPCS: 36415; 85027; 86850; 86900; 86901

== ENCOUNTER 2024-05-10 02:29 | Outpatient (CLI) | payer MEDICAID, SELFPAY ==
[2024-05-10 15:04] LABS: Abs Immature Grans 0.02 10^3/uL (0.0-0.06); Absolute Basophil Count 0.02 10^3/uL (0.0-0.2); Absolute Eosinophil Count 0.11 10^3/uL (0.0-0.7); Absolute Lymphocyte Count 2.45 10^3/uL (1.2-3.4); Absolute Monocyte Count 0.39 10^3/uL (0.1-0.8); Absolute Neutrophil Count 4.15 10^3/uL (1.2-6.7); Basophils % 0.3 %; Eosinophils % 1.5 %; HCT 40.2 % (36.0-46.0); HGB 12.6 g/dL (11.2-15.7); Immature Grans % 0.3 %; Lymphocytes % 34.3 %; MCHC 31.3 % (32.0-36.0); MCV 86 fL (80-95); MPV 12.2 fL (8.0-11.0); Monocytes % 5.5 %; Neutrophils % 58.1 %; Platelet Count 149 10^3/uL (130-400); RBC 4.67 10^6/uL (3.93-5.22); RDW 14.6 % (11.7-14.6); RDW-SD 45.6 fL; WBC 7.14 10^3/uL (4.4-10.8)
== END 2024-05-10 02:30 | disposition home or self-care (01) ==
PROVIDERS: PCP Nurse Practitioner Family; Visit Provider Internal Medicine Hematology & Oncology
DX: D69.6 Thrombocytopenia, unspecified (principal)
CPT/HCPCS: 36415; 85025

== ENCOUNTER 2024-05-31 02:52 | Outpatient (CLI) | payer MEDICAID, SELFPAY ==
[2024-05-31 09:12] LABS: Abs Immature Grans 0.01 10^3/uL (0.0-0.06); Absolute Basophil Count 0.04 10^3/uL (0.0-0.2); Absolute Eosinophil Count 0.11 10^3/uL (0.0-0.7); Absolute Lymphocyte Count 2.11 10^3/uL (1.2-3.4); Absolute Neutrophil Count 3.98 10^3/uL (1.2-6.7); Basophils % 0.6 %; Eosinophils % 1.7 %; HCT 41.4 % (36.0-46.0); HGB 13.1 g/dL (11.2-15.7); Immature Grans % 0.2 %; Lymphocytes % 31.7 %; MCH 26.9 pg (27.0-33.0); MCHC 31.6 % (32.0-36.0); MCV 85 fL (80-95); MPV 12.5 fL (8.0-11.0); Neutrophils % 59.8 %; Platelet Count 107 10^3/uL (130-400); RBC 4.87 10^6/uL (3.93-5.22); RDW 15.2 % (11.7-14.6); WBC 6.65 10^3/uL (4.4-10.8)
[2024-05-31 09:32] LABS: ALT 52 U/L (14-59); AST 27 U/L (15-37); Albumin 3.7 g/dL (3.4-5.0); Alkaline Phosphatase 112 U/L (46-116); Anion Gap 6.8 mmol/L (3-11); BUN 17 mg/dL (7-18); Bilirubin, Total 0.47 mg/dL (0.2-1.0); CO2 27.2 mmol/L (21.0-32.0); Calcium 9.2 mg/dL (8.5-10.1); Chloride 106 mmol/L (98-107); Estimated GFR 78.21 (mL/min/1.73m2); Glucose 61 mg/dL (74-106); Potassium 3.8 mmol/L (3.5-5.1); Sodium 140 mmol/L (136-145); Total Protein 7.5 g/dL (6.4-8.2)
== END 2024-05-31 02:53 | disposition home or self-care (01) ==
LOC: LBO 02:52
PROVIDERS: PCP Nurse Practitioner Family; Visit Provider Internal Medicine Hematology & Oncology
DX: Z39.2 Encounter for routine postpartum follow-up (principal); Z30.430 Encounter for insertion of intrauterine contraceptive device
CPT/HCPCS: 36415; 80053; 85025

== ENCOUNTER 2024-07-13 02:02 | Outpatient (CLI) | payer MEDICAID, SELFPAY ==
[2024-07-13 09:37] LABS: Abs Immature Grans 0.03 10^3/uL (0.0-0.06); Absolute Basophil Count 0.03 10^3/uL (0.0-0.2); Absolute Lymphocyte Count 1.84 10^3/uL (1.2-3.4); Absolute Monocyte Count 0.47 10^3/uL (0.1-0.8); Absolute Neutrophil Count 3.83 10^3/uL (1.2-6.7); Basophils % 0.5 %; Eosinophils % 1.6 %; HCT 41.8 % (36.0-46.0); HGB 13.4 g/dL (11.2-15.7); Immature Grans % 0.5 %; Lymphocytes % 29.2 %; MCH 27.2 pg (27.0-33.0); MCHC 32.1 % (32.0-36.0); MCV 85 fL (80-95); MPV 11.9 fL (8.0-11.0); Monocytes % 7.5 %; Neutrophils % 60.7 %; Platelet Count 109 10^3/uL (130-400); RBC 4.92 10^6/uL (3.93-5.22); RDW 15.8 % (11.7-14.6); RDW-SD 49.1 fL
[2024-07-13 09:53] LABS: ALT 74 U/L (14-59); AST 34 U/L (15-37); Albumin 3.8 g/dL (3.4-5.0); Alkaline Phosphatase 112 U/L (46-116); Anion Gap 5.9 mmol/L (3-11); BUN 20 mg/dL (7-18); Bilirubin, Total 0.53 mg/dL (0.2-1.0); CO2 28.1 mmol/L (21.0-32.0); CREATININE 0.9 mg/dL (0.55-1.02); Calcium 9.3 mg/dL (8.5-10.1); Chloride 103 mmol/L (98-107); Estimated GFR 88.75 (mL/min/1.73m2); Glucose 60 mg/dL (74-106); Sodium 137 mmol/L (136-145); Total Protein 7.9 g/dL (6.4-8.2)
== END 2024-07-13 02:03 | disposition home or self-care (01) ==
LOC: LBO 02:02
PROVIDERS: PCP Nurse Practitioner Family; Visit Provider Internal Medicine Hematology & Oncology
DX: Z97.5 Presence of (intrauterine) contraceptive device (principal); D69.6 Thrombocytopenia, unspecified
CPT/HCPCS: 36415; 80053; 85025

== ENCOUNTER 2024-08-02 03:26 | Outpatient (CLI) | payer MEDICAID, SELFPAY ==
[2024-08-02 15:47] LABS: Abs Immature Grans 0.01 10^3/uL (0.0-0.06); Absolute Basophil Count 0.04 10^3/uL (0.0-0.2); Absolute Eosinophil Count 0.08 10^3/uL (0.0-0.7); Absolute Lymphocyte Count 2.63 10^3/uL (1.2-3.4); Absolute Monocyte Count 0.37 10^3/uL (0.1-0.8); Absolute Neutrophil Count 4.26 10^3/uL (1.2-6.7); Basophils % 0.5 %; Eosinophils % 1.1 %; HCT 40.8 % (36.0-46.0); HGB 13.3 g/dL (11.2-15.7); Immature Grans % 0.1 %; Lymphocytes % 35.6 %; MCH 27.7 pg (27.0-33.0); MCHC 32.6 % (32.0-36.0); MCV 85 fL (80-95); MPV 12.6 fL (8.0-11.0); Neutrophils % 57.7 %; Platelet Count 129 10^3/uL (130-400); RDW 15.6 % (11.7-14.6); RDW-SD 48.4 fL; WBC 7.39 10^3/uL (4.4-10.8)
[2024-08-02 16:20] LABS: ALT 51 U/L (14-59); AST 22 U/L (15-37); Albumin 3.9 g/dL (3.4-5.0); Alkaline Phosphatase 118 U/L (46-116); Anion Gap 8.9 mmol/L (3-11); BUN 21 mg/dL (7-18); Bilirubin, Total 0.31 mg/dL (0.2-1.0); CO2 27.1 mmol/L (21.0-32.0); CREATININE 0.7 mg/dL (0.55-1.02); Calcium 9.1 mg/dL (8.5-10.1); Chloride 105 mmol/L (98-107); Estimated GFR 119.99 (mL/min/1.73m2); Glucose 90 mg/dL (74-106); Potassium 3.9 mmol/L (3.5-5.1); Sodium 141 mmol/L (136-145); Total Protein 7.9 g/dL (6.4-8.2)
== END 2024-08-02 03:27 | disposition home or self-care (01) ==
PROVIDERS: PCP Nurse Practitioner Family; Visit Provider Internal Medicine Hematology & Oncology
DX: D69.6 Thrombocytopenia, unspecified (principal)
CPT/HCPCS: 36415; 80053; 85025

== ENCOUNTER 2024-08-15 11:03 | Outpatient (CLI) | payer MEDICAID, SELFPAY ==
[2024-08-15 10:39] LABS: HCT 41.7 % (36.0-46.0); HGB 13.5 g/dL (11.2-15.7); MCH 27.9 pg (27.0-33.0); MCHC 32.4 % (32.0-36.0); MCV 86 fL (80-95); MPV 11.8 fL (8.0-11.0); Platelet Count 135 10^3/uL (130-400); RBC 4.84 10^6/uL (3.93-5.22); RDW 14.5 % (11.7-14.6); RDW-SD 45.8 fL; WBC 7.16 10^3/uL (4.4-10.8)
== END 2024-08-15 11:04 | disposition home or self-care (01) ==
LOC: LBO 11:04
PROVIDERS: Advanced Practice Midwife; PCP Nurse Practitioner Family; Visit Provider Internal Medicine Hematology & Oncology
DX: Z34.90 Encounter for supervision of normal pregnancy, unspecified, unspecified trimester (principal)
CPT/HCPCS: 36415; 85027

== ENCOUNTER 2024-11-29 02:38 | Outpatient (CLI) | payer MEDICAID, SELFPAY ==
[2024-11-29 14:14] LABS: Abs Immature Grans 0.02 10^3/uL (0.0-0.06); Absolute Basophil Count 0.04 10^3/uL (0.0-0.2); Absolute Eosinophil Count 0.14 10^3/uL (0.0-0.7); Absolute Lymphocyte Count 2.45 10^3/uL (1.2-3.4); Absolute Monocyte Count 0.45 10^3/uL (0.1-0.8); Absolute Neutrophil Count 4.15 10^3/uL (1.2-6.7); Basophils % 0.6 %; Eosinophils % 1.9 %; HCT 41.1 % (36.0-46.0); HGB 13.7 g/dL (11.2-15.7); Immature Grans % 0.3 %; Lymphocytes % 33.8 %; MCH 28.4 pg (27.0-33.0); MCHC 33.3 % (32.0-36.0); MCV 85 fL (80-95); MPV 11.8 fL (8.0-11.0); Monocytes % 6.2 %; Neutrophils % 57.2 %; Platelet Count 118 10^3/uL (130-400); RBC 4.83 10^6/uL (3.93-5.22); RDW 12.8 % (11.7-14.6); RDW-SD 39.7 fL; WBC 7.25 10^3/uL (4.4-10.8)
[2024-11-29 14:43] LABS: ALT 52 U/L (14-59); AST 31 U/L (15-37); Albumin 4.2 g/dL (3.4-5.0); Alkaline Phosphatase 121 U/L (46-116); Anion Gap 8.6 mmol/L (3-11); BUN 16 mg/dL (7-18); Bilirubin, Total 0.44 mg/dL (0.2-1.0); CO2 28.4 mmol/L (21.0-32.0); CREATININE 0.9 mg/dL (0.55-1.02); Calcium 9.5 mg/dL (8.5-10.1); Chloride 104 mmol/L (98-107); Estimated GFR 88.75 (mL/min/1.73m2); Glucose 91 mg/dL (74-106); Potassium 4.2 mmol/L (3.5-5.1); Sodium 141 mmol/L (136-145); Total Protein 7.9 g/dL (6.4-8.2)
== END 2024-11-29 02:39 | disposition home or self-care (01) ==
LOC: LBO 02:38
PROVIDERS: PCP Nurse Practitioner Family; Visit Provider Internal Medicine Hematology & Oncology
DX: D69.6 Thrombocytopenia, unspecified (principal)
CPT/HCPCS: 36415; 80053; 85025

== ENCOUNTER 2025-03-13 15:56 | Outpatient (CLI) | payer MEDICAID, SELFPAY ==
[2025-03-13 16:22] LABS: HCT 41.4 % (36.0-46.0); HGB 13.7 g/dL (11.2-15.7); MCH 28.5 pg (27.0-33.0); MCHC 33.1 % (32.0-36.0); MCV 86 fL (80-95); MPV 11.9 fL (8.0-11.0); Platelet Count 144 10^3/uL (130-400); RBC 4.81 10^6/uL (3.93-5.22); RDW 12.9 % (11.7-14.6); RDW-SD 40.2 fL; WBC 7.19 10^3/uL (4.4-10.8)
[2025-03-13 16:31] LABS: HCG Quant, Pregnancy 2 mIU/mL (1-3)
== END 2025-03-13 15:57 | disposition home or self-care (01) ==
LOC: LBO 15:56
PROVIDERS: PCP Nurse Practitioner Family; Visit Provider Advanced Practice Midwife
DX: Z34.91 Encounter for supervision of normal pregnancy, unspecified, first trimester (principal); O26.91 Pregnancy related conditions, unspecified, first trimester
CPT/HCPCS: 36415; 85027; 84702

== ENCOUNTER 2025-08-03 12:59 | Outpatient (REF) | payer MEDICAID, SELFPAY ==
[2025-08-03 15:25] LABS: Abs Immature Grans 0.03 10^3/uL (0.0-0.06); HCT 40.5 % (36.0-46.0); HGB 13.2 g/dL (11.2-15.7); Immature Grans % 0.3 %; MCH 28.1 pg (27.0-33.0); MCHC 32.6 % (32.0-36.0); MCV 86 fL (80-95); MPV 13.0 fL (8.0-11.0); Platelet Count 115 10^3/uL (130-400); RBC 4.70 10^6/uL (3.93-5.22); RDW 13.1 % (11.7-14.6); RDW-SD 41.1 fL; WBC 9.34 10^3/uL (4.4-10.8)
[2025-08-03 15:40] LABS: ALT 42 U/L (14-59); AST 21 U/L (15-37); Albumin 4.0 g/dL (3.4-5.0); Alkaline Phosphatase 124 U/L (46-116); Anion Gap 10.1 mmol/L (3-11); BUN 20 mg/dL (7-18); Bilirubin, Total 0.4 mg/dL (0.2-1.0); CO2 26.9 mmol/L (21.0-32.0); Calcium 9.1 mg/dL (8.5-10.1); Chloride 103 mmol/L (98-107); Estimated GFR 119.24 (mL/min/1.73m2); Glucose 76 mg/dL (74-106); Potassium 4.0 mmol/L (3.5-5.1); Sodium 140 mmol/L (136-145); Total Protein 7.5 g/dL (6.4-8.2)
== END 2025-08-03 13:00 | disposition home or self-care (01) ==
LOC: NCHCN 12:59
PROVIDERS: PCP Nurse Practitioner Family; Visit Provider Family Medicine
DX: R10.11 Right upper quadrant pain (principal)
CPT/HCPCS: 80053; 85025